=== PATIENT | female | born 1955 | race Caucasian/White ===

== ENCOUNTER 2017-07-11 14:27 | Emergency (ER) | payer OTHER ==
[2017-07-11 14:35] VITALS: RESP 18; TEMP 97.4
[2017-07-11] MEDS ORDERED: KETOROLAC 30 MG/ML 1 ML VIAL IVP STA (14:46)
[2017-07-11] MEDS ORDERED: SODIUM CHLORIDE 0.9% 1,000 ML IV STA (14:46)
--- NOTE | 2017-07-11 14:51 | ED ---
General Adult HPI - General Chief complaint: Chest Pain Stated complaint: Chest Pain Time Seen by Provider: 07/11/17 14:37 Source: patient, RN notes reviewed, old records reviewed Mode of arrival: ambulatory Limitations: no limitations - History of Present Illness Initial comments: 61-year-old female with no significant past medical history presents with right- sided chest pain. Patient reports pain started while at rest. Sharp stabbing in nature. Did travel to her back. There was one episode of nausea and vomiting. Patient states she has had 2 normal bowel movements since the episode. Denies shortness of breath. Patient is able to point with one finger to the location of the pain. Denies any injury. Patient is concerned this could be her gallbladder. Past surgical history of hysterectomy, and appendectomy. No cardiac history. Patient denies fever but states she had some chills. - Related Data Previous Rx's Medication Instructions Recorded HYDROcodone/APAP 5-325MG [[place] 1 tab PO Q6HR PRN #12 tab 07/11/17 5-325] Ibuprofen [Motrin] 600 mg PO Q8HR PRN #24 tab 07/11/17 Allergies Allergy/AdvReac Type Severity Reaction Status Date / Time No Known Allergies Allergy Verified 07/11/17 16:06 Review of Systems ROS Statement: Those systems with pertinent positive or pertinent negative responses have been documented in the HPI. ROS Other: All systems not noted in ROS Statement are negative. Past Medical History Past Medical History: No Reported History Additional Past Medical History / Comment(s): colon polyp History of Any Multi-Drug Resistant Organisms: None Reported Past Surgical History: Appendectomy, Hysterectomy, Tubal Ligation Additional Past Surgical History / Comment(s): colonoscopy 2 weeks ago Past Psychological History: Anxiety Smoking Status: Never smoker Past Alcohol Use History: Occasional Past Drug Use History: None Reported General Exam Limitations: no limitations General appearance: alert, in no apparent distress Head exam: Present: atraumatic, normocephalic Eye exam: Present: normal appearance, PERRL ENT exam: Present: normal exam Neck exam: Present: normal inspection. Absent: tenderness, meningismus Respiratory exam: Present: normal lung sounds bilaterally. Absent: respiratory distress Cardiovascular Exam: Present: regular rate, normal rhythm, other (Point tenderness over the right costal sternal margin.) GI/Abdominal exam: Present: soft. Absent: distended, tenderness, guarding, rebound Extremities exam: Present: normal inspection, full ROM, normal capillary refill. Absent: pedal edema Back exam: Present: normal inspection, full ROM Neurological exam: Present: alert, oriented X3, CN II-XII intact Psychiatric exam: Present: normal affect, normal mood Skin exam: Present: warm, dry, intact. Absent: cyanosis, diaphoretic Course Vital Signs 07/11/17 07/11/17 14:31 15:40 Temperature 97.4 F L Pulse Rate 77 68 Respiratory 18 18 Rate Blood Pressure 138/78 168/79 O2 Sat by Pulse 99 99 Oximetry EKG Findings - EKG Comments: EKG Findings:: EKG shows normal sinus rhythm, ventricular rate 66, NE interval 1 :30, castration 66, QTC 398, no ST segment elevation or depression, no T-wave abnormality Medical Decision Making - Medical Decision Making 61-year-old female with reproducible right anterior chest pain. Patient was initially concerned this may be her gallbladder. Ultrasound was obtained, negative for cholelithiasis or signs of cholecystitis. Laboratory studies including CBC, CMP, cardiac enzymes, d-dimer and liver function tests are unremarkable. Patient is given Toradol. On reevaluation she is feeling much better. EKG was obtained, nonischemic at the time the patient had significant pain. Further history does reveal patient did some dancing this weekend, believes she may have overdone it. Pain is reproducible, point tenderness over the costosternal border on the right. Diagnosis: Muscular skeletal chest pain. - Lab Data Result diagrams: 07/11/17 14:48 07/11/17 14:48 Lab Results 07/11/17 07/11/17 07/11/17 Range/Units 14:48 14:48 14:48 WBC 7.4 (3.8-10.6) k/uL RBC 4.16 (3.80-5.40) m/uL Hgb 12.4 (11.4-16.0) gm/dL Hct 38.2 (34.0-46.0) % MCV 91.7 (80.0-100.0) fL MCH 29.9 (25.0-35.0) pg MCHC 32.6 (31.0-37.0) g/dL RDW 12.9 (11.5-15.5) % Plt Count 187 (150-450) k/uL Neutrophils % 88 % Lymphocytes % 9 % Monocytes % 3 % Eosinophils % 0 % Basophils % 0 % Neutrophils # 6.5 (1.3-7.7) k/uL Lymphocytes # 0.6 L (1.0-4.8) k/uL Monocytes # 0.2 (0-1.0) k/uL Eosinophils # 0.0 (0-0.7) k/uL Basophils # 0.0 (0-0.2) k/uL PT (9.0-12.0) sec INR (<1.2) APTT (22.0-30.0) sec D-Dimer (<0.60) mg/L FEU Sodium 138 (137-145) mmol/L Potassium 4.5 (3.5-5.1) mmol/L Chloride 107 (98-107) mmol/L Carbon Dioxide 21 L (22-30) mmol/L Anion Gap 10 mmol/L BUN 17 (7-17) mg/dL Creatinine 0.74 (0.52-1.04) mg/dL Est GFR (MDRD) Af Amer >60 (>60 ml/min/1.73 sqM) Est GFR (MDRD) Non-Af >60 (>60 ml/min/1.73 sqM) Glucose 113 H (74-99) mg/dL Calcium 9.4 (8.4-10.2) mg/dL Magnesium 1.8 (1.6-2.3) mg/dL Total Bilirubin 0.4 (0.2-1.3) mg/dL AST 24 (14-36) U/L ALT 33 (9-52) U/L Alkaline Phosphatase 87 (38-126) U/L Total Creatine Kinase 68 (30-135) U/L CK-MB (CK-2) 0.8 (0.0-2.4) ng/mL CK-MB (CK-2) Rel Index 1.2 Troponin I <0.012 (0.000-0.034) ng/mL Total Protein 7.3 (6.3-8.2) g/dL Albumin 4.3 (3.5-5.0) g/dL Amylase <30 L (30-110) U/L Lipase 49 (23-300) U/L Urine Color Urine Appearance (Clear) Urine pH (5.0-8.0) Ur Specific [place] (1.001-1.035) Urine Protein (Negative) Urine Glucose (UA) (Negative) Urine Ketones (Negative) Urine Blood (Negative) Urine Nitrite (Negative) Urine Bilirubin (Negative) Urine Urobilinogen (<2.0) mg/dL Ur Leukocyte Esterase (Negative) 07/11/17 07/11/17 Range/Units 14:48 15:53 WBC (3.8-10.6) k/uL RBC (3.80-5.40) m/uL Hgb (11.4-16.0) gm/dL Hct (34.0-46.0) % MCV (80.0-100.0) fL MCH (25.0-35.0) pg MCHC (31.0-37.0) g/dL RDW (11.5-15.5) % Plt Count (150-450) k/uL Neutrophils % % Lymphocytes % % Monocytes % % Eosinophils % % Basophils % % Neutrophils # (1.3-7.7) k/uL Lymphocytes # (1.0-4.8) k/uL Monocytes # (0-1.0) k/uL Eosinophils # (0-0.7) k/uL Basophils # (0-0.2) k/uL PT 9.9 (9.0-12.0) sec INR 1.0 (<1.2) APTT 20.7 L (22.0-30.0) sec D-Dimer 0.24 (<0.60) mg/L FEU Sodium (137-145) mmol/L Potassium (3.5-5.1) mmol/L Chloride (98-107) mmol/L Carbon Dioxide (22-30) mmol/L Anion Gap mmol/L BUN (7-17) mg/dL Creatinine (0.52-1.04) mg/dL Est GFR (MDRD) Af Amer (>60 ml/min/1.73 sqM) Est GFR (MDRD) Non-Af (>60 ml/min/1.73 sqM) Glucose (74-99) mg/dL Calcium (8.4-10.2) mg/dL Magnesium (1.6-2.3) mg/dL Total Bilirubin (0.2-1.3) mg/dL AST (14-36) U/L ALT (9-52) U/L Alkaline Phosphatase (38-126) U/L Total Creatine Kinase (30-135) U/L CK-MB (CK-2) (0.0-2.4) ng/mL CK-MB (CK-2) Rel Index Troponin I (0.000-0.034) ng/mL Total Protein (6.3-8.2) g/dL Albumin (3.5-5.0) g/dL Amylase (30-110) U/L Lipase (23-300) U/L Urine Color Yellow Urine Appearance Clear (Clear) Urine pH 5.5 (5.0-8.0) Ur Specific [place] 1.025 (1.001-1.035) Urine Protein Trace H (Negative) Urine Glucose (UA) Negative (Negative) Urine Ketones Trace H (Negative) Urine Blood Negative (Negative) Urine Nitrite Negative (Negative) Urine Bilirubin Negative (Negative) Urine Urobilinogen <2.0 (<2.0) mg/dL Ur Leukocyte Esterase Negative (Negative) Disposition Clinical Impression: Chest wall syndrome, Chest wall pain Disposition: HOME SELF-CARE Condition: Good Instructions: Costochondritis (ED) Prescriptions: HYDROcodone/APAP 5-325MG [[place] 5-325] 1 tab PO Q6HR PRN #12 tab PRN Reason: Pain Ibuprofen [Motrin] 600 mg PO Q8HR PRN #24 tab PRN Reason: Pain Referrals: Tree Perez DO [Primary Care Provider] - 1-2 days Time of Disposition: 16:24
--- NOTE | 2017-07-11 15:14 | XR ---
EXAMINATION TYPE: XR chest 2V DATE OF EXAM: 07/11/2017 COMPARISON: Chest x-ray and CTA chest July 01, 2016 HISTORY: Right-sided chest pain TECHNIQUE: Frontal and lateral views of the chest are obtained. FINDINGS: There is no focal air space opacity, pleural effusion, or pneumothorax seen. The cardiac silhouette size is within normal limits. The osseous structures are intact. Large rim calcified les ion in the upper abdomen is redemonstrated presumed benign near the level of spleen on CT. IMPRESSION: No acute cardiopulmonary process.
[2017-07-11 15:25] LABS: Basophils % (A) 0 %; CH 29.9; CHCM 32.7; Eosinophils % (A) 0 %; HCT 38.2 % (34.0-46.0); HDW 2.79; HGB 12.4 gm/dL (11.4-16.0); Luc # (Auto) 0.08; Luc % (Auto) 1; Lymphocytes # (A) 0.6 k/uL (1.0-4.8); Lymphocytes % (A) 9 %; MCH 29.9 pg (25.0-35.0); MCHC 32.6 g/dL (31.0-37.0); MCV 91.7 fL (80.0-100.0); Monocytes # (A) 0.2 k/uL (0-1.0); Monocytes % (A) 3 %; Neutrophils # (A) 6.5 k/uL (1.3-7.7); Neutrophils % (A) 88 %; RBC 4.16 m/uL (3.80-5.40); RDW 12.9 % (11.5-15.5); WBC 7.4 k/uL (3.8-10.6); WBC (Perox) 7.25
--- NOTE | 2017-07-11 15:32 | US ---
EXAMINATION TYPE: US gallbladder DATE OF EXAM: 07/11/2017 COMPARISON: NONE CLINICAL HISTORY: Pain. US 06/2016 EXAM MEASUREMENTS: Liver Length: 15.7 cm Gallbladder Wall: 0.2 cm CBD: 0.5 cm Right Kidney: 9.5 x 3.8 x 3.5 cm Pancreas: Tail obscured by overlying bowel gas, visualized portions wnl Liver: wnl Gallbladder: wnl Evidence for sonographic Grigsby's sign: No CBD: wnl Right Kidney: No hydronephrosis or masses seen IMPRESSION: No sonographic evidence of cholecystitis or cholelithiasis.
[2017-07-11 15:33] LABS: ALT 33 U/L (9-52); AST 24 U/L (14-36); Alkaline Phosphatase 87 U/L (38-126); Amylase <30 U/L (30-110); Anion Gap 10 mmol/L; Blood Urea Nitrogen 17 mg/dL (7-17); Calcium 9.4 mg/dL (8.4-10.2); Carbon Dioxide 21 mmol/L (22-30); Chloride 107 mmol/L (98-107); Glucose 113 mg/dL (74-99); Magnesium 1.8 mg/dL (1.6-2.3); Non-African American GFR(MDRD) >60 (>60 ml/min/1.73 sqM); Potassium 4.5 mmol/L (3.5-5.1); Sodium 138 mmol/L (137-145); Total Bilirubin 0.4 mg/dL (0.2-1.3); Total Protein 7.3 g/dL (6.3-8.2)
[2017-07-11 15:40] LABS: Prothrombin Time 9.9 sec (9.0-12.0)
[2017-07-11 15:42] VITALS: PULSE 68
[2017-07-11 15:46] LABS: Partial Thromboplastin Time 20.7 sec (22.0-30.0)
[2017-07-11 15:47] LABS: Creatine Kinase 68 U/L (30-135)
[2017-07-11 16:00] LABS: Creatine Kinase MB 0.8 ng/mL (0.0-2.4); Troponin I <0.012 ng/mL (0.000-0.034)
[2017-07-11 16:01] LABS: Appearance,Urine Clear (Clear); Bilirubin,Urine Negative (Negative); Glucose,Urine (UA) Negative (Negative); Ketones,Urine Trace (Negative); Leukocyte Esterase,Urine Negative (Negative); Nitrite,Urine Negative (Negative); PH, Urine 5.5 (5.0-8.0); Protein,Urine Trace (Negative); Specific Gravity,Urine 1.025 (1.001-1.035); UA Billing (MACRO vs. MICRO) CHEM; Urobilinogen,Urine <2.0 mg/dL (<2.0)
[2017-07-11 16:30] VITALS: BP 150/71
== END 2017-07-11 16:35 | disposition home or self-care (01) ==
LOC: EC 14:27
DX: R07.1 Chest pain on breathing (principal); R07.89 Other chest pain
CPT/HCPCS: 99285; 96374; 96361; 36415; 93005; 85379; 80053; 82150; 82550; 82553; 83690; 83735; 84484; 85025; 85610; 85730; 81003; 71020; 76705; J1885

== ENCOUNTER 2019-03-19 13:34 | Emergency (ER) | payer BC, OTHER ==
[2019-03-19 14:26] VITALS: RESP 18
[2019-03-19 16:10] LABS: Basophils % (A) 0 %; Eosinophils # (A) 0.1 k/uL (0-0.7); Eosinophils % (A) 2 %; HCT 37.9 % (34.0-46.0); HGB 12.4 gm/dL (11.4-16.0); Lymphocytes # (A) 1.9 k/uL (1.0-4.8); Lymphocytes % (A) 32 %; MCH 28.8 pg (25.0-35.0); MCHC 32.6 g/dL (31.0-37.0); MCV 88.4 fL (80.0-100.0); Mean Platelet Volume 7.5; Monocytes # (A) 0.3 k/uL (0-1.0); Monocytes % (A) 6 %; Neutrophils # (A) 3.4 k/uL (1.3-7.7); Neutrophils % (A) 58 %; Platelet Count 172 k/uL (150-450); RBC 4.29 m/uL (3.80-5.40); WBC 5.9 k/uL (3.8-10.6)
[2019-03-19 16:24] LABS: ALT 17 U/L (9-52); AST 26 U/L (14-36); African American GFR (CKD) >90 (>60 ml/min/1.73 sqM); Albumin 4.6 g/dL (3.5-5.0); Alkaline Phosphatase 77 U/L (38-126); Anion Gap 10 mmol/L; Blood Urea Nitrogen 14 mg/dL (7-17); Calcium 9.7 mg/dL (8.4-10.2); Carbon Dioxide 22 mmol/L (22-30); Chloride 106 mmol/L (98-107); Glucose 96 mg/dL (74-99); Sodium 138 mmol/L (137-145); Total Bilirubin 0.5 mg/dL (0.2-1.3); Total Protein 7.7 g/dL (6.3-8.2)
--- NOTE | 2019-03-19 16:50 | ED ---
General Adult HPI - General Chief complaint: Vaginal Bleeding Stated complaint: female Time Seen by Provider: 03/19/19 14:55 Source: patient, RN notes reviewed Mode of arrival: ambulatory Limitations: no limitations - History of Present Illness Initial comments: 63-year-old female with a past medical history of tubal ligation, hysterectomy presents to the emergency department for a chief complaint of vaginal bleeding. Patient states on Tuesday she had rigorous intercourse and it was bleeding. Patient states she was passing clots at that time. States that she had minimal spotting since then so presented to urgent care today. States that when the speculum exam was performed she started bleeding heavily for several minutes. Patient then presented to the emergency department on their recommendation. Patient states she feels fine besides this.Patient has no other complaints at this time including shortness of breath, chest pain, abdominal pain, nausea or vomiting, headache, or visual changes. - Related Data Home Medications Medication Instructions Recorded Confirmed Ibuprofen [Advil] 200 - 400 mg PO Q6HR PRN 03/19/19 03/19/19 Allergies Allergy/AdvReac Type Severity Reaction Status Date / Time No Known Allergies Allergy Verified 03/19/19 15:19 Review of Systems ROS Statement: Those systems with pertinent positive or pertinent negative responses have been documented in the HPI. ROS Other: All systems not noted in ROS Statement are negative. Past Medical History Past Medical History: No Reported History Additional Past Medical History / Comment(s): colon polyp History of Any Multi-Drug Resistant Organisms: None Reported Past Surgical History: Appendectomy, Hysterectomy, Tonsillectomy, Tubal Ligation Additional Past Surgical History / Comment(s): colonoscopy 2 weeks ago Past Psychological History: Anxiety Smoking Status: Never smoker Past Alcohol Use History: Occasional Past Drug Use History: None Reported General Exam Limitations: no limitations General appearance: alert, in no apparent distress Head exam: Present: atraumatic, normocephalic, normal inspection Eye exam: Present: normal appearance, PERRL, EOMI. Absent: scleral icterus, conjunctival injection, periorbital swelling ENT exam: Present: normal exam, mucous membranes moist Neck exam: Present: normal inspection, full ROM. Absent: tenderness, meningismus, lymphadenopathy Respiratory exam: Present: normal lung sounds bilaterally. Absent: respiratory distress, wheezes, rales, rhonchi, stridor Cardiovascular Exam: Present: regular rate, normal rhythm, normal heart sounds. Absent: systolic murmur, diastolic murmur, rubs, gallop, clicks GI/Abdominal exam: Present: soft, normal bowel sounds. Absent: distended, tenderness, guarding, rebound, rigid External exam: Present: normal external exam. Absent: erythema, swelling, lesions, lacerations, ecchymosis Speculum exam: Present: vaginal bleeding (Very minimal bleeding noted, no blood clots.). Absent: erythema, vaginal discharge, cervical discharge, foreign body By manual exam: Present: normal by manual exam. Absent: cervical motion tenderness, adnexal tenderness, adnexal mass, uterine enlargement, uterine tenderness Course Vital Signs 03/19/19 14:21 Temperature 98.2 F Pulse Rate 90 Respiratory 18 Rate Blood Pressure 122/87 O2 Sat by Pulse 97 Oximetry Medical Decision Making - Medical Decision Making 63-year-old female presents to the emergency department for a chief complaint of vaginal bleeding. States that she had intercourse on Tuesday and had vaginal bleeding at that time. States she had very minimal spotting since then. Went to urgent care today and speculum exam caused bleeding again so she presented to the emergency department. On exam patient has minimal bleeding present. There is possibly a small laceration noted to the vaginal vault. CBC and CMP were unremarkable. Urine was performed Previously at urgent care which results were reviewed and were negative. Patient could not urinate here. Patient reevaluated, no vaginal bleeding whatsoever at this time. Patient eagerly requesting discharge. States she has already called Dr. White is going to be following up there shortly. Chest however to return if patient has any worsening bleeding. Discussed vaginal rest as well. - Lab Data Result diagrams: 03/19/19 15:56 03/19/19 15:56 Lab Results 03/19/19 03/19/19 Range/Units 15:56 15:56 WBC 5.9 (3.8-10.6) k/uL RBC 4.29 (3.80-5.40) m/uL Hgb 12.4 (11.4-16.0) gm/dL Hct 37.9 (34.0-46.0) % MCV 88.4 (80.0-100.0) fL MCH 28.8 (25.0-35.0) pg MCHC 32.6 (31.0-37.0) g/dL RDW 14.0 (11.5-15.5) % Plt Count 172 (150-450) k/uL Neutrophils % 58 % Lymphocytes % 32 % Monocytes % 6 % Eosinophils % 2 % Basophils % 0 % Neutrophils # 3.4 (1.3-7.7) k/uL Lymphocytes # 1.9 (1.0-4.8) k/uL Monocytes # 0.3 (0-1.0) k/uL Eosinophils # 0.1 (0-0.7) k/uL Basophils # 0.0 (0-0.2) k/uL Sodium 138 (137-145) mmol/L Potassium 4.0 (3.5-5.1) mmol/L Chloride 106 (98-107) mmol/L Carbon Dioxide 22 (22-30) mmol/L Anion Gap 10 mmol/L BUN 14 (7-17) mg/dL Creatinine 0.70 (0.52-1.04) mg/dL Est GFR (CKD-EPI)AfAm >90 (>60 ml/min/1.73 sqM) Est GFR (CKD-EPI)NonAf >90 (>60 ml/min/1.73 sqM) Glucose 96 (74-99) mg/dL Calcium 9.7 (8.4-10.2) mg/dL Total Bilirubin 0.5 (0.2-1.3) mg/dL AST 26 (14-36) U/L ALT 17 (9-52) U/L Alkaline Phosphatase 77 (38-126) U/L Total Protein 7.7 (6.3-8.2) g/dL Albumin 4.6 (3.5-5.0) g/dL Disposition Clinical Impression: Vaginal bleeding Disposition: HOME SELF-CARE Condition: Good Instructions (If sedation given, give patient instructions): Dysfunctional Uterine Bleeding (ED) Additional Instructions: Please follow up with Dr. Gutiérrez in one to 2 days. Please return here to the emergency department if bleeding recurs. Is patient prescribed a controlled substance at d/c from ED?: No Referrals: Tree Perez DO [Primary Care Provider] - 1-2 days Ana Luisa Lubin DO [Family Provider] - 1-2 days Time of Disposition: 16:49
[2019-03-19 17:00] VITALS: BP 120/77; PULSE 85; TEMP 98.6
== END 2019-03-19 17:00 | disposition home or self-care (01) ==
LOC: EC 13:34
DX: N93.9 Abnormal uterine and vaginal bleeding, unspecified (principal); Z86.010 Personal history of colon polyps; Z90.49 Acquired absence of other specified parts of digestive tract; Z98.51 Tubal ligation status; Z90.710 Acquired absence of both cervix and uterus
CPT/HCPCS: 36415; 80053; 85025; 99284

== ENCOUNTER → 2019-05-30 | Outpatient (CLI) | payer BC ==
--- NOTE | 2019-05-31 13:38 | MM ---
Reason for exam: screening (asymptomatic). Last mammogram was performed 8 years and 5 months ago. History: Patient is postmenopausal. Benign right mammotome panel of the right breast, September 20, 2007. Benign right mammotome panel of the right breast, September 20, 2007. Took estrogen for 5 years beginning at age 46. Physical Findings: A clinical breast exam by your physician is recommended on an annual basis and results should be correlated with mammographic findings. MG 3D Screening Mammo W/Cad Bilateral CC and MLO view(s) were taken. Prior study comparison: January 05, 2011, CAD bilateral diagnostic mammogram. August 31, 2007, workup right diagnostic mammogram. The breast tissue is heterogeneously dense. This may lower the sensitivity of mammography. Stable benign calcifications. There is no discrete abnormality. No significant changes when compared with prior studies. ASSESSMENT: Benign, BI-RAD 2 RECOMMENDATION: Routine screening mammogram of both breasts in 1 year.
== END | disposition home or self-care (01) ==
LOC: RADMAMWWP 07:55
PROVIDERS: ATTEND Family Medicine
DX: Z12.31 Encounter for screening mammogram for malignant neoplasm of breast (principal)
CPT/HCPCS: 77063; 77067

== ENCOUNTER → 2021-11-26 | Outpatient (CLI) | payer MEDICARE ==
--- NOTE | 2021-11-26 23:22 | XR ---
EXAMINATION TYPE: XR knee complete LT DATE OF EXAM: 11/26/2021 COMPARISON: None available INDICATION: 66-year-old female, pain TECHNIQUE: 3 views of the left knee FINDINGS: Slightly sharp medial tibial spine with mild narrowing of the tibiofemoral joint space. Small medial tibial and superior patellar osteophytosis. No other significant bony degenerative changes of the left knee joint. No definite acute fracture rochelle e identified. No sizable knee joint effusion. IMPRESSION: [id number] degenerative changes of the left knee joint as described above.
== END | disposition home or self-care (01) ==
LOC: RADXRMAIN 14:54
PROVIDERS: ATTEND Family Medicine
DX: M17.12 Unilateral primary osteoarthritis, left knee (principal); M25.762 Osteophyte, left knee

== ENCOUNTER → 2021-12-29 | Outpatient (CLI) | payer MEDICARE ==
--- NOTE | 2021-12-30 08:17 | MR ---
EXAMINATION TYPE: MR knee LT wo con DATE OF EXAM: 12/29/2021 COMPARISON: Left knee x-ray November 26, 2021 HISTORY: Left knee pain, painful kneecap, and swelling. History of slamming knee injury due to fall. TECHNIQUE: Multiplanar, multisequence imaging of the left knee is performed without IV contrast. FINDINGS: MEDIAL MENISCUS: Medial extrusion medial meniscus on coronal images. Oblique signal posterior horn ex tending to inferior articular surface. LATERAL MENISCUS: Anterior and posterior horns are intact without tear. CRUCIATE LIGAMENTS: The anterior and posterior cruciate ligaments are intact and unremarkable. COLLATERAL LIGAMENTS: The medial collateral ligament and lateral collateral ligament complex are inta ct and unremarkable. EXTENSOR MECHANISM: Visualized quadriceps and patellar tendons are intact. EFFUSION: No significant suprapatellar joint effusion. POPLITEAL CYST: No popliteal/nice cyst. TRICOMPARTMENT SPACES: Mild tricompartment joint space loss and spurring. CARTILAGE: Tricompartment articular cartilage is preserved. BONE MARROW SIGNAL: No focal abnormal marrow signal is appreciated. OTHER: No additional significant abnormality is appreciated. IMPRESSION: 1. Oblique full-thickness tear posterior horn medial meniscus. 2. Mild tricompartment degenerative changes as detailed above.
== END | disposition home or self-care (01) ==
LOC: RADMRIMAIN 16:46
PROVIDERS: ATTEND Orthopaedic Surgery
DX: S83.242A Other tear of medial meniscus, current injury, left knee, initial encounter (principal); M17.12 Unilateral primary osteoarthritis, left knee; W19.XXXA Unspecified fall, initial encounter

== ENCOUNTER 2022-04-28 12:47 | Inpatient (IN) | payer MEDICARE ==
--- NOTE | 2022-04-28 17:13 | ED ---
General Adult HPI - General Source: patient, RN notes reviewed Mode of arrival: ambulatory Limitations: no limitations <Kimber Moise - Last Filed: 04/28/22 20:06> <Rell Araujo - Last Filed: 04/28/22 20:24> - General Chief complaint: Recheck/Abnormal Lab/Rx Stated complaint: infection Time Seen by Provider: 04/28/22 16:31 - History of Present Illness Initial comments: Patient is a 66-year-old female presents the emergency room with complaints of ongoing fatigue and generalized malaise along with chills. She reports that approximately 9 days ago she developed significant chills and some mild tremors with extreme fatigue. She reports that the chills and tremors resolved however she continues to have significant fatigue in which she was unable to get out of bed for 3 days. She recently had been following with rheumatology regarding mild rheumatoid arthritis diagnosis and was started on methotrexate in January of this year. She was due for a dose of methotrexate this past Tuesday and was advised by rheumatology not to take the doses. She had a workup completed by rheumatology who advised her that she had a questionable urinary tract infection but they were awaiting culture and did not start her on treatment for any infection. She has not seen her primary care provider regarding her symptoms. She states that she has tested herself her covert multiple times since the onset of the symptoms and that all of her tests have been negative. She also complains of a cough that is persistent. She has decreased oral intake but denies any nausea vomiting or diarrhea. She denies any chest pain, shortness of breath, headache or dizziness. She does report some chills but denies any known fevers. With the exception of her rheumatoid arthritis her only other significant past medical history is for anxiety. She states that she is vaccinated for COVID. She denies any known exposure to any communicable diseases. (Kimber Moise) - Related Data Home Medications Medication Instructions Recorded Confirmed Ibuprofen [Advil] 200 - 400 mg PO Q6HR PRN 03/19/19 04/28/22 Folic Acid 2 mg PO DAILY 04/28/22 04/28/22 Allergies Allergy/AdvReac Type Severity Reaction Status Date / Time No Known Allergies Allergy Verified 04/28/22 18:07 Review of Systems ROS Other: All systems not noted in ROS Statement are negative. <Kimber Moise - Last Filed: 04/28/22 20:06> ROS Other: All systems not noted in ROS Statement are negative. <GayleRell Vidal - Last Filed: 04/28/22 20:24> ROS Statement: Those systems with pertinent positive or pertinent negative responses have been documented in the HPI. Past Medical History Past Medical History: No Reported History Additional Past Medical History / Comment(s): colon polyp, RA History of Any Multi-Drug Resistant Organisms: None Reported Past Surgical History: Appendectomy, Hysterectomy, Tonsillectomy, Tubal Ligation Additional Past Surgical History / Comment(s): colonoscopy 2 weeks ago Past Psychological History: Anxiety Smoking Status: Never smoker Past Alcohol Use History: Occasional Past Drug Use History: None Reported <Kimber Moise - Last Filed: 04/28/22 20:06> General Exam Limitations: no limitations General appearance: alert, in no apparent distress Head exam: Present: atraumatic, normocephalic, normal inspection Eye exam: Present: normal appearance, PERRL, EOMI. Absent: scleral icterus, conjunctival injection, periorbital swelling ENT exam: Present: normal exam, mucous membranes moist Neck exam: Present: normal inspection. Absent: tenderness, meningismus, lymphadenopathy Respiratory exam: Present: normal lung sounds bilaterally. Absent: respiratory distress, wheezes, rales, rhonchi, stridor Cardiovascular Exam: Present: regular rate, normal rhythm, normal heart sounds. Absent: systolic murmur, diastolic murmur, rubs, gallop, clicks GI/Abdominal exam: Present: soft, normal bowel sounds. Absent: distended, tenderness, guarding, rebound, rigid Extremities exam: Present: normal inspection, full ROM, normal capillary refill. Absent: tenderness, pedal edema, joint swelling, calf tenderness Back exam: Present: normal inspection Neurological exam: Present: alert, oriented X3, CN II-XII intact Psychiatric exam: Present: normal affect, normal mood Skin exam: Present: warm, dry, intact, normal color. Absent: rash <Kimber Moise - Last Filed: 04/28/22 20:06> Course Vital Signs 04/28/22 13:21 Temperature 98.8 F Pulse Rate 119 H Respiratory 20 Rate Blood Pressure 113/66 O2 Sat by Pulse 96 Oximetry Medical Decision Making - Lab Data Result diagrams: 04/28/22 17:49 04/28/22 17:49 <Kimber Moise - Last Filed: 04/28/22 20:06> - Lab Data Result diagrams: 04/28/22 17:49 04/28/22 17:49 <Rell Araujo - Last Filed: 04/28/22 20:24> - Medical Decision Making Covid swab negative. Will check CBC, CMP along with inflammatory markers and influenza swabs. Will repeat urinalysis that she was advised by rheumatology was positive. No indication for diagnostic imaging at this time. CBC normal. Sed rate elevated at 69, CRP elevated 14.8. AST mildly elevated at 50, normal ALT along with BUN mildly elevated at 18. Unclear etiology of inflammatory versus infectious process. No obvious infectious source. TSH still pending. Case discussed with Dr. Araujo who is taking over the further evaluation and treatment of the patient which at this time is planned for observation admission to medicine with infectious disease consultation. (Kimber Moise) Patient care is signed out to me by previous shift physician nurse practitioner, lower 1 command. Briefly, patient is a 66-year-old female presents emergency department for constitutional symptoms. Patient allegedly was recently diagnosed with rheumatoid arthritis. She was supposed to be started on immune medications however has not done so yet. Laboratory evaluation was obtained. CBC is unremarkable. No leukocytosis. Metabolic panel is within acceptable limits. Of note patient is a sort of 69 and a CRP 14.8. Urinalysis negative. Patient having respiratory symptoms. Covered and influenza tests are negative. At this point there is concern of significant inflammatory processes. Bacter emia is part of the differential. Pending blood cultures. Given patient's severity of symptoms patient benefit from medical monitoring will consultation infectious disease. (Rell Araujo) - Lab Data Lab Results 04/28/22 04/28/22 04/28/22 Range/Units 13:28 17:49 17:49 WBC 8.4 (3.8-10.6) k/uL RBC 4.37 (3.80-5.40) m/uL Hgb 13.2 (11.4-16.0) gm/dL Hct 40.2 (34.0-46.0) % MCV 92.1 (80.0-100.0) fL MCH 30.1 (25.0-35.0) pg MCHC 32.7 (31.0-37.0) g/dL RDW 15.5 (11.5-15.5) % Plt Count 279 (150-450) k/uL MPV 7.2 Neutrophils % 76 % Lymphocytes % 15 % Monocytes % 6 % Eosinophils % 0 % Basophils % 1 % Neutrophils # 6.4 (1.3-7.7) k/uL Lymphocytes # 1.3 (1.0-4.8) k/uL Monocytes # 0.5 (0-1.0) k/uL Eosinophils # 0.0 (0-0.7) k/uL Basophils # 0.0 (0-0.2) k/uL ESR 69 H (0-20) mm/hr Sodium (137-145) mmol/L Potassium (3.5-5.1) mmol/L Chloride (98-107) mmol/L Carbon Dioxide (22-30) mmol/L Anion Gap mmol/L BUN (7-17) mg/dL Creatinine (0.52-1.04) mg/dL Est GFR (CKD-EPI)AfAm (>60 ml/min/1.73 sqM) Est GFR (CKD-EPI)NonAf (>60 ml/min/1.73 sqM) Glucose (74-99) mg/dL Calcium (8.4-10.2) mg/dL Total Bilirubin (0.2-1.3) mg/dL AST (14-36) U/L ALT (4-34) U/L Alkaline Phosphatase (38-126) U/L CK-MB (CK-2) (0.0-2.4) ng/mL C-Reactive Protein (<1.0) mg/dL Total Protein (6.3-8.2) g/dL Albumin (3.5-5.0) g/dL Urine Color Light Yellow Urine Appearance Clear (Clear) Urine pH 6.0 (5.0-8.0) Ur Specific Winter 1.006 (1.001-1.035) Urine Protein Negative (Negative) Urine Glucose (UA) Negative (Negative) Urine Ketones Negative (Negative) Urine Blood Negative (Negative) Urine Nitrite Negative (Negative) Urine Bilirubin Negative (Negative) Urine Urobilinogen <2.0 (<2.0) mg/dL Ur Leukocyte Esterase Negative (Negative) Coronavirus (PCR) Not Detected (Not Detectd) Influenza Type A RNA (Not Detectd) Influenza Type B (PCR) (Not Detectd) 04/28/22 04/28/22 04/28/22 Range/Units 17:49 17:49 18:21 WBC (3.8-10.6) k/uL RBC (3.80-5.40) m/uL Hgb (11.4-16.0) gm/dL Hct (34.0-46.0) % MCV (80.0-100.0) fL MCH (25.0-35.0) pg MCHC (31.0-37.0) g/dL RDW (11.5-15.5) % Plt Count (150-450) k/uL MPV Neutrophils % % Lymphocytes % % Monocytes % % Eosinophils % % Basophils % % Neutrophils # (1.3-7.7) k/uL Lymphocytes # (1.0-4.8) k/uL Monocytes # (0-1.0) k/uL Eosinophils # (0-0.7) k/uL Basophils # (0-0.2) k/uL ESR (0-20) mm/hr Sodium 132 L (137-145) mmol/L Potassium 4.7 (3.5-5.1) mmol/L Chloride 96 L (98-107) mmol/L Carbon Dioxide 24 (22-30) mmol/L Anion Gap 12 mmol/L BUN 18 H (7-17) mg/dL Creatinine 0.83 (0.52-1.04) mg/dL Est GFR (CKD-EPI)AfAm 85 (>60 ml/min/1.73 sqM) Est GFR (CKD-EPI)NonAf 74 (>60 ml/min/1.73 sqM) Glucose 99 (74-99) mg/dL Calcium 9.6 (8.4-10.2) mg/dL Total Bilirubin 1.1 (0.2-1.3) mg/dL AST 50 H (14-36) U/L ALT 29 (4-34) U/L Alkaline Phosphatase 75 (38-126) U/L CK-MB (CK-2) 1.2 (0.0-2.4) ng/mL C-Reactive Protein 14.8 H (<1.0) mg/dL Total Protein 7.2 (6.3-8.2) g/dL Albumin 4.1 (3.5-5.0) g/dL Urine Color Urine Appearance (Clear) Urine pH (5.0-8.0) Ur Specific Winter (1.001-1.035) Urine Protein (Negative) Urine Glucose (UA) (Negative) Urine Ketones (Negative) Urine Blood (Negative) Urine Nitrite (Negative) Urine Bilirubin (Negative) Urine Urobilinogen (<2.0) mg/dL Ur Leukocyte Esterase (Negative) Coronavirus (PCR) (Not Detectd) Influenza Type A RNA Not Detected (Not Detectd) Influenza Type B (PCR) Not Detected (Not Detectd) Disposition <Kimber Moise - Last Filed: 04/28/22 20:06> Decision Time: 20:24 <Rell Araujo - Last Filed: 04/28/22 20:24> Clinical Impression: SIRS without infection or organ dysfunction Disposition: ADMITTED IP TO THIS HOSP Condition: Fair Referrals: Tree Perez DO [Primary Care Provider] - 1-2 days
[2022-04-28 18:01] LABS: Basophils % (A) 1 %; Eosinophils % (A) 0 %; HCT 40.2 % (34.0-46.0); HGB 13.2 gm/dL (11.4-16.0); Lymphocytes # (A) 1.3 k/uL (1.0-4.8); Lymphocytes % (A) 15 %; MCH 30.1 pg (25.0-35.0); MCHC 32.7 g/dL (31.0-37.0); MCV 92.1 fL (80.0-100.0); Mean Platelet Volume 7.2; Monocytes # (A) 0.5 k/uL (0-1.0); Monocytes % (A) 6 %; Neutrophils # (A) 6.4 k/uL (1.3-7.7); Neutrophils % (A) 76 %; Platelet Count 279 k/uL (150-450); RBC 4.37 m/uL (3.80-5.40); RDW 15.5 % (11.5-15.5); WBC 8.4 k/uL (3.8-10.6)
[2022-04-28 18:08] LABS: Appearance,Urine Clear (Clear); Bilirubin,Urine Negative (Negative); Blood,Urine Negative (Negative); Color,Urine Light Yellow; Glucose,Urine (UA) Negative (Negative); Ketones,Urine Negative (Negative); Leukocyte Esterase,Urine Negative (Negative); Nitrite,Urine Negative (Negative); Protein,Urine Negative (Negative); Specific Gravity,Urine 1.006 (1.001-1.035); Urobilinogen,Urine <2.0 mg/dL (<2.0)
[2022-04-28 18:16] LABS: Albumin 4.1 g/dL (3.5-5.0); Calcium 9.6 mg/dL (8.4-10.2); Total Bilirubin 1.1 mg/dL (0.2-1.3); Total Protein 7.2 g/dL (6.3-8.2)
[2022-04-28 18:18] LABS: Potassium 4.7 mmol/L (3.5-5.1)
[2022-04-28 18:46] LABS: Erythrocyte Sedimentation Rate 69 mm/hr (0-20)
[2022-04-28 18:50] LABS: C Reactive Protein 14.8 mg/dL (<1.0)
[2022-04-28] MEDS ORDERED: MORPHINE SULFATE 4 MG/ML SYRINGE IV PRN (20:19)
[2022-04-28] MEDS ORDERED: ONDANSETRON 4 MG/2 ML VIAL IVP PRN (20:19)
[2022-04-28] MEDS ORDERED: NALOXONE 0.4 MG/ML 1 ML VIAL IV PRN (20:19)
[2022-04-28] MEDS ORDERED: SODIUM CHLORIDE 0.9% 1,000 ML IV SCH (20:30)
--- NOTE | 2022-04-28 22:54 | XR ---
EXAMINATION TYPE: XR chest 2V DATE OF EXAM: 04/28/2022 COMPARISON: 07/11/2017 HISTORY: Hypoxemia TECHNIQUE: FINDINGS: There is pulmonary interstitial edema. Heart size is normal. Costophrenic angles are clear. There are chest leads. IMPRESSION: Diffuse pulmonary interstitial edema appears new compared to the old exam and could be ac juan pneumonia or acute heart failure. Follow-up is recommended.
[2022-04-28] MEDS ORDERED: ALBUTEROL NEBULIZED 2.5 MG/3 ML INHALATION PRN (23:19)
[2022-04-28] MEDS ORDERED: PNEUMONIA PROTOCOL UTILIZED 1 EACH MISC PO PRN (23:20)
[2022-04-29] MEDS ORDERED: PIPERACILLIN-TAZOBACTAM 3.375 GM in SODIUM CHLORIDE 0.9% 100 ML IVPB SCH ×2
[2022-04-29] MEDS: SODIUM CHLORIDE 0.9% 1,000 ML IV SCH ×2 (01:47→23:41)
[2022-04-29] MEDS: ACETAMINOPHEN TAB 325 MG TAB PO PRN ×2 (01:47→23:41)
[2022-04-29] MEDS: ALBUTEROL NEBULIZED 2.5 MG/3 ML INHALATION SCH ×4 (08:06→19:52)
[2022-04-29 09:20] LABS: African American GFR (CKD) 77.2 (60.0-200.0); Anion Gap 12.6 mmol/L (10.00-18.00); BUN/Creat Ratio 19.89 Ratio (12.00-20.00); Blood Urea Nitrogen 17.9 mg/dL (9.0-27.0); Calcium 9.4 mg/dL (8.7-10.3); Carbon Dioxide 23.4 mmol/L (20.0-27.5); Non-African American GFR(CKD) 66.6 (60.0-200.0)
--- NOTE | 2022-04-29 10:15 | P.HPIM ---
History of Present Illness This is a pleasant 66 years old female with past medical history of rheumatoid arthritis on methotrexate at home and she follows up with Dr. iraheta tuberculosis specialist Patient states for the last 2 weeks she is been feeling tired, short of breath with sweating, over the last 3-4 days is started getting worse with more tiresome, shakiness. She is complaining of from cough with no phlegm and dyspnea but no chest pain or abdominal pain area she feels some tightness in her throat. No diarrhea, no dysuria or urinary complaints. She has mild headache and dizziness which is nonspecific, no weakness or numbness. Smoking, illicit drugs. She drinks alcohol occasionally Vitals showing fever of 99.7. Tachycardia of 119 on admission, blood pressure 113/66, tachypneic and 20 on admission and saturation 96% on room air on admission. Later on oxygen saturation dropped to 80% on room air CBC is unremarkable, ESR is elevated 69 Sodium 132, creatinine 0.8. BUN is 18 which is elevated Liver enzymes not elevated, TSH normal 4.0. CRP elevated 14.8. Urine analysis is negative. The influenza and covid viruses are negative, undetected Chest x-ray, diffuse pulmonary interstitial edema appears new compared to old exam and could be acute pneumonia or acute failure. Follow-up is recommended Patient is a started on Zithromax and ceftriaxone in the emergency room as well as normal saline 75 mL/h infectious disease team was consulted Review of Systems Review of systems CONSTITUTIONAL: No fever, no malaise, no fatigue. HEENT: No recent visual problems or hearing problems. Denied any sore throat. CARDIOVASCULAR: No orthopnea, PND, no palpitations, no syncope. PULMONARY: No chest wall tenderness, no hemoptysis. GASTROINTESTINAL: No diarrhea, no nausea, no vomiting, no abdominal pain. Normoactive bowel sounds. NEUROLOGICAL: No headaches, no weakness, no numbness. HEMATOLOGICAL: Denies any bleeding or petechiae. GENITOURINARY: Denies any burning micturition, frequency, or urgency. MUSCULOSKELETAL/RHEUMATOLOGICAL: Denies any joint pain, swelling, or any muscle pain. ENDOCRINE: Denies any polyuria or polydipsia. Past Medical History Past Medical History: No Reported History Additional Past Medical History / Comment(s): colon polyp, RA History of Any Multi-Drug Resistant Organisms: None Reported Past Surgical History: Appendectomy, Hysterectomy, Tonsillectomy, Tubal Ligation Additional Past Surgical History / Comment(s): colonoscopy 2 weeks ago Past Anesthesia/Blood Transfusion Reactions: No Reported Reaction Past Psychological History: No Psychological Hx Reported Smoking Status: Never smoker Past Alcohol Use History: None Reported Past Drug Use History: None Reported Medications and Allergies Home Medications Medication Instructions Recorded Confirmed Type Ibuprofen [Advil] 200 - 400 mg PO Q6HR PRN 03/19/19 04/28/22 History Folic Acid 2 mg PO DAILY 04/28/22 04/28/22 History Allergies Allergy/AdvReac Type Severity Reaction Status Date / Time No Known Allergies Allergy Verified 04/28/22 18:07 Physical Exam Vitals: Vital Signs Temp Pulse Pulse Resp BP BP Pulse Ox 04/29/22 02:41 99.1 F 04/29/22 01:51 100.1 F H 99 20 118/74 93 L 04/28/22 22:36 99.7 F H 114 H 22 160/80 90 L 04/28/22 22:17 109 H 18 132/72 95 04/28/22 21:20 88 L 04/28/22 13:21 98.8 F 119 H 20 113/66 96 Intake and Output 04/28/22 04/28/22 04/29/22 14:59 22:59 06:59 Other: # Voids 2 Weight 70.307 kg 70.307 kg GENERAL: The patient is alert and oriented x3, not in any acute distress. Well developed, well nourished. HEENT: Pupils are round and equally reacting to light. EOMI. No scleral icterus. No conjunctival pallor. Normocephalic, atraumatic. No pharyngeal erythema. No thyromegaly. CARDIOVASCULAR: S1 and S2 present. No murmurs, rubs, or gallops. -PULMONARY: Chest is clear to auscultation, no wheezing . bilateral crepitation ABDOMEN: Soft, nontender, nondistended, normoactive bowel sounds. No palpable organomegaly. MUSCULOSKELETAL: No joint swelling or deformity. EXTREMITIES: No cyanosis, clubbing, or pedal edema. NEUROLOGICAL: Gross neurological examination did not reveal any focal deficits. SKIN: No rashes. no petechiae. Results CBC & Chem 7: 04/28/22 17:49 04/29/22 06:18 Labs: Abnormal Lab Results - Last 24 Hours (Table) 04/28/22 04/28/22 04/28/22 Range/Units 17:49 17:49 17:49 ESR 69 H (0-20) mm/hr Sodium 132 L (137-145) mmol/L Chloride 96 L (98-107) mmol/L BUN 18 H (7-17) mg/dL AST 50 H (14-36) U/L C-Reactive Protein 14.8 H (<1.0) mg/dL Procalcitonin 0.19 H (0.02-0.09) ng/mL Thrombosis Risk Factor Assmnt - Choose All That Apply Each Risk Factor Represents 2 Points: Age 61-74 years Thrombosis Risk Factor Assessment Total Risk Factor Score: 2 Thrombosis Risk Factor Assessment Level: Low Risk Assessment and Plan Assessment: acute Bilateral diffuse interstitial pneumonia, community acquired pneumonia Acute hypoxic respiratory failure Systemic inflammatory response with fever, tachycardia and tachypnea Dehydration History of mild rheumatoid arthritis, methotrexate on hold Plan: This is a pleasant 66 years old female who presents with acute pneumonia, hypoxia Continue with ceftriaxone and Zithromax Follow-up culture results IV fluids Infectious disease consult Pulmonary team consult Labs and medication were reviewed.. Continue same treatment. Continue with symptomatic treatment. Resume home medication. Monitor lytes and vitals. DVT and GI prophylaxis. Further recommendations as per clinical course of the patient DVT prophylaxis: Subcutaneous Lovenox GI Prophylaxis: Pepcid PT/OT: Pending Prognosis is guarded
[2022-04-29] MEDS: ENOXAPARIN 40 MG/0.4 ML SYRINGE SQ SCH (10:23)
[2022-04-29] MEDS: AZITHROMYCIN 500 MG TAB PO SCH (10:23)
[2022-04-29] MEDS ORDERED: RX INFO: IV CONTRAST WAS GIVEN 1 EACH MISC MISCELLANE PRN (11:20)
--- NOTE | 2022-04-29 12:57 | P.CONS ---
History of Present Illness - Reason for Consult Consult date: 04/29/22 pneumonia, hx of RA - History of Present Illness This is a inpatient hospital consult on a patient known to our practice and is regularly seen for rheumatoid arthritis. She has been on methotrexate 5 pills weekly and folic acid one tablet daily since January 2022 and has been on 2 separate prednisone tapers with initial one started in December and second one started in February. She also expressed concern at one point that the prednisone was increasing her anxiety. She was doing relatively okay until 04/27 visit where she complained of sudden onset fever, chills, general malaise and fatigue. At that time, she denied any cough or sinus congestion and had taken 2 separate Covid test at home that were both negative. She said that her last dose of methotrexate was taken on 04/19 and on 04/[address] Padron told patient that she was most likely suffering from a infection and to hold her methotrexate, increase folic acid to 1 mg 3 times daily and to be seen by the emergency room. Labs drawn in our office on 04/27 showed significantly high inflammatory markers including a ESR of 59 and CRP of 13.9. A microscopic urinalysis at that time showed 2+ leukocyte Estrace but her urine culture was negative. Today, patient is evaluated at bedside and is covered in several blankets. She keeps explaining that she cannot get warm. She is on 5 L of oxygen nasal cannula as her pulse oximetry dropped into the 80s on room air. She denies any joint pain, joint stiffness, or joint swelling. She is concerned about missing her methotrexate as she does not want to have a rheumatoid flare. She also complains of productive cough, fevers, malaise, and fatigue. 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 Chest x-ray 04/28/22: Diffuse pulmonary interstitial edema, could be acute pneumonia versus heart failure I spoke with Dr. Padron regarding patient case and methotrexate induced lung injury cannot be ruled out therefore we would recommend continuing folic acid 1 mg 3 times daily and holding methotrexate until further evaluation. We will defer the rest of her care to infectious disease, pulmonary, and admitting physician. Review of Systems Constitutional: Reports chills, Reports fatigue, Reports fever, Reports malaise, Reports night sweats, Reports poor appetite, Reports weakness Eyes: denies blurred vision Ears: deny: decreased hearing, ear discharge, earache, tinnitus Respiratory: Reports cough, Reports dyspnea Integumentary: Denies pruritus, Denies rash Psychiatric: Reports anxiety Endocrine: Reports fatigue Past Medical History Past Medical History: No Reported History Additional Past Medical History / Comment(s): colon polyp, RA History of Any Multi-Drug Resistant Organisms: None Reported Past Surgical History: Appendectomy, Hysterectomy, Tonsillectomy, Tubal Ligation Additional Past Surgical History / Comment(s): colonoscopy 2 weeks ago Past Anesthesia/Blood Transfusion Reactions: No Reported Reaction Past Psychological History: No Psychological Hx Reported Smoking Status: Never smoker Past Alcohol Use History: None Reported, Occasional Past Drug Use History: None Reported Medications and Allergies Home Medications Medication Instructions Recorded Confirmed Type Ibuprofen [Advil] 200 - 400 mg PO Q6HR PRN 03/19/19 04/28/22 History Folic Acid 2 mg PO DAILY 04/28/22 04/28/22 History Allergies Allergy/AdvReac Type Severity Reaction Status Date / Time No Known Allergies Allergy Verified 04/28/22 18:07 Physical Exam Vitals: Vital Signs Temp Pulse Pulse Resp BP BP Pulse Ox 04/29/22 08:08 93 L 04/29/22 08:00 98.0 F 95 14 97/63 90 L 04/29/22 02:41 99.1 F 04/29/22 01:51 100.1 F H 99 20 118/74 93 L 04/28/22 22:36 99.7 F H 114 H 22 160/80 90 L 04/28/22 22:17 109 H 18 132/72 95 04/28/22 21:20 88 L 04/28/22 13:21 98.8 F 119 H 20 113/66 96 Intake and Output 04/28/22 04/29/22 04/29/22 22:59 06:59 14:59 Other: # Voids 2 Weight 70.307 kg - Constitutional General appearance: average body habitus, no acute distress - EENT Eyes: PERRLA ENT: hearing grossly normal - Neck Neck: normal ROM Thyroid: bilateral: normal size - Respiratory Respiratory: bilateral: CTA - Cardiovascular Rhythm: regular Heart sounds: normal: S1, S2 - Gastrointestinal General gastrointestinal: normal bowel sounds, soft - Neurologic Neurologic: CNII-XII intact - Psychiatric Psychiatric: A&O x's 3 Results CBC & Chem 7: 04/28/22 17:49 04/29/22 06:18 Labs: Abnormal Lab Results - Last 24 Hours (Table) 04/28/22 04/28/22 04/28/22 Range/Units 17:49 17:49 17:49 ESR 69 H (0-20) mm/hr Sodium 132 L (137-145) mmol/L Chloride 96 L (98-107) mmol/L BUN 18 H (7-17) mg/dL Glucose (70-110) mg/dL AST 50 H (14-36) U/L C-Reactive Protein 14.8 H (<1.0) mg/dL Procalcitonin 0.19 H (0.02-0.09) ng/mL 04/29/22 Range/Units 06:18 ESR (0-20) mm/hr Sodium 134 L (137-145) mmol/L Chloride (98-107) mmol/L BUN (7-17) mg/dL Glucose 126 H (70-110) mg/dL AST (14-36) U/L C-Reactive Protein (<1.0) mg/dL Procalcitonin (0.02-0.09) ng/mL Chest x-ray: report reviewed Assessment and Plan Time with Patient: Greater than 30
--- NOTE | 2022-04-29 14:06 | CT ---
EXAMINATION TYPE: CT chest w con DATE OF EXAM: 04/29/2022 COMPARISON: 07/01/2016 HISTORY: Shortness of breath CT DLP: 259.2 mGycm Automated exposure control for dose reduction was used. TECHNIQUE: CT scan of the chest is performed with IV Contrast, patient injected with 100 ml mL of Isovue 370. M IP Images are created on CT scanner and reviewed. 3D reconstructed images are created on an [employer] workstation and reviewed. FINDINGS: LUNGS: Diffuse groundglass changes are seen bilaterally. No pleural effusion or pneumothorax. No siza ble pulmonary nodule. MEDIASTINUM: Aorta normal caliber. No significant atherosclerotic changes. Central pulmonary arteries enhance normally. There is borderline right hilar and subcarinal lymphadenopathy measuring short axi s of 1.1 cm. No significant coronary artery calcification or pericardial effusion. Heart size normal. OTHER: Hypertrophic and degenerative changes in the spine. A large calcification within the spleen n oted. Could represent a large granuloma. Additionally there is a well-circumscribed 1.9 cm calcified nodule in the left upper quadrant anterior to the spleen stable from prior exam likely related to syd cified splenule. Calcification within the left splenic artery could be associated with splenic artery aneurysm measuring approximately 1 cm. IMPRESSION: 1. Diffuse bilateral groundglass changes most likely etiology is a diffuse pneumonitis or opportunist ic infection. Viral pneumonia in the differential diagnosis. Pulmonary edema felt less likely given t he lack of pleural fluid. Hypersensitivity pneumonitis also a consideration. Nondescript borderline m ediastinal and right hilar adenopathy could be followed on a short-term basis. 2. Intra-abdominal chronic findings see above.
--- NOTE | 2022-04-29 16:29 | P.CNPUL ---
History of Present Illness Consult date: 04/29/22 Reason for consult: pneumonia History of present illness: This is a 66-year-old female patient was coming in for shortness of breath, hypoxic respiratory failure and fever and chills and progressive distances been going on for the past 7-10 days. The patient does not have any previous history of lung disease. No recurrent pneumonias. She was diagnosed having rheumatoid arthritis and the patient has been on immunosuppression treatment with methotrexate a total of 15 mg once a week that she takes every Tuesday. The patient has not had any major complications related to infections while being on this treatment. At the same time, the [place] and she has an extensive amount of cleaning and replaced with contaminated with mice droppings, bird droppings and possibly some molds. She is currently a to be quite contaminated in their quality being support. In any Rate, the patient comes into the hospital. No skin rashes. No diarrhea. No hemoptysis. No pleurisy. She has been infected with: Covid 19 in the past has recovered without any major issues and following that the patient has received all of her vaccination. Blood work shows a white count of 8.4, hemoglobin 15.2 and a platelet count of 279. Electrolytes are all within normal limits. Liver function tests are essentially within normal limits. Pro-calcitonin level is at 0.19. UA is negative. Patient is currently on examination Rocephin and Zithromax. She is currently on 5 L about 2 by nasal cannula. Review of Systems Constitutional: Reports fatigue, Reports fever Eyes: denies as per HPI, denies blurred vision, denies bulging eye, denies decreased vision, denies diplopia, denies discharge, denies dry eye, denies irritation, denies itching, denies pain, denies photophobia, denies loss of peripheral vision, denies loss of vision, denies tunnel vision/blind spots Ears: deny: decreased hearing, ear discharge, earache, tinnitus Ears, nose, mouth and throat: Reports as per HPI Breasts: absent: as per HPI, change in shape, gynecomastia, masses, nipple discharge, pain, skin changes, swelling Cardiovascular: Reports decreased exercise tolerance, Reports dyspnea on exertion Respiratory: Reports cough, Reports dyspnea Gastrointestinal: Reports as per HPI Genitourinary: Reports as per HPI Menstruation: Reports as per HPI Musculoskeletal: Reports as per HPI Musculoskeletal: absent: ankle pain, ankle stiffness, ankle swelling, as per HPI, elbow pain, elbow stiffness, elbow swelling, foot pain, foot stiffness, foot swelling, hand pain, hand stiffness, hand swelling, hip pain, hip stiffness, hip swelling, knee pain, knee stiffness, knee swelling, shoulder pain, shoulder stiffness, shoulder swelling, wrist pain, wrist stiffness, wrist swelling Integumentary: Reports as per HPI Neurological: Reports as per HPI Psychiatric: Reports as per HPI Endocrine: Reports as per HPI Hematologic/Lymphatic: Reports as per HPI Allergic/Immunologic: Reports as per HPI Past Medical History Past Medical History: No Reported History Additional Past Medical History / Comment(s): colon polyp, RA History of Any Multi-Drug Resistant Organisms: None Reported Past Surgical History: Appendectomy, Hysterectomy, Tonsillectomy, Tubal Ligation Additional Past Surgical History / Comment(s): colonoscopy 2 weeks ago Past Anesthesia/Blood Transfusion Reactions: No Reported Reaction Past Psychological History: No Psychological Hx Reported Smoking Status: Never smoker Past Alcohol Use History: None Reported, Occasional Past Drug Use History: None Reported Medications and Allergies Home Medications Medication Instructions Recorded Confirmed Type Ibuprofen [Advil] 200 - 400 mg PO Q6HR PRN 03/19/19 04/28/22 History Folic Acid 2 mg PO DAILY 04/28/22 04/28/22 History Allergies Allergy/AdvReac Type Severity Reaction Status Date / Time No Known Allergies Allergy Verified 04/28/22 18:07 Physical Exam Vitals: Vital Signs Temp Pulse Pulse Resp BP BP Pulse Ox 04/29/22 08:08 93 L 04/29/22 08:00 98.0 F 95 14 97/63 90 L 04/29/22 02:41 99.1 F 04/29/22 01:51 100.1 F H 99 20 118/74 93 L 04/28/22 22:36 99.7 F H 114 H 22 160/80 90 L 04/28/22 22:17 109 H 18 132/72 95 04/28/22 21:20 88 L Intake and Output 04/29/22 04/29/22 04/29/22 06:59 14:59 22:59 Other: # Voids 2 GENERAL: The patient is alert and oriented x3, not in any acute distress. Well developed, well nourished. Currently on 5 L O2 nasal cannula. His lactate my offer of HEENT: Pupils are round and equally reacting to light. EOMI. No scleral icterus. No conjunctival pallor. Normocephalic, atraumatic. No pharyngeal erythema. No thyromegaly. CARDIOVASCULAR: S1 and S2 present. No murmurs, rubs, or gallops. -PULMONARY: Chest is clear to auscultation, no wheezing . bilateral crepitation ABDOMEN: Soft, nontender, nondistended, normoactive bowel sounds. No palpable organomegaly. MUSCULOSKELETAL: No joint swelling or deformity. EXTREMITIES: No cyanosis, clubbing, or pedal edema. NEUROLOGICAL: Gross neurological examination did not reveal any focal deficits. SKIN: No rashes. no petechiae. Results - Laboratory Findings CBC and BMP: 04/28/22 17:49 04/29/22 06:18 Abnormal lab findings: Abnormal Labs 04/28/22 04/28/22 04/28/22 17:49 17:49 17:49 ESR 69 H Sodium 132 L Chloride 96 L BUN 18 H Glucose AST 50 H C-Reactive Protein 14.8 H Procalcitonin 0.19 H 04/29/22 06:18 ESR Sodium 134 L Chloride BUN Glucose 126 H AST C-Reactive Protein Procalcitonin - Diagnostic Findings Chest x-ray: image reviewed Assessment and Plan Plan: Acute hypoxic respiratory failure Acute bilateral pneumonia with diffuse bilateral pulmonary infiltrates, currently under investigation. The patient has been taking methotrexate on outpatient basis. Rule out routine community acquired pathogens including atypical pathogens. Ruled out for opportunistic infections including fungi, PCP, etc.. Rule out methotrexate lung toxicity. Acute interstitial lung disease related to rheumatoid arthritis felt to be less likely. Note that lost approximately 50. Her with methotrexate and in the form of hypersensitive pneumonitis. Nevertheless, the patient does not have any other GI, bone marrow or epithelial toxicity related to methotrexate. Shortness of breath secondary to above History of rheumatoid arthritis Plan Obtain a CAT scan of the chest to characterized pulmonary infiltrates Check mycoplasma antibodies Check a Legionella urine antigen Check histoplasma urine antigen and blood antigen and antibiotics Check Aspergillus antibodies We'll be stopping methotrexate continue Rocephin and Zithromax Abnormal Solu-Medrol 40 mg every 12 hours, discontinue helpful in methotrexate- induced lung toxicity Lovenox for DVT prophylaxis We'll continue to follow.
--- NOTE | 2022-04-29 22:58 | P.CONS ---
History of Present Illness - Reason for Consult Consult date: 04/29/22 - History of Present Illness Patient is a 66-year-old female with a past medical history significant for rheumatoid arthritis in this patient currently on methotrexate patient is presenting to the ER for evaluation of increasing shortness of breath and cough in this patient symptom has been going on for about a week to 9 days patient symptoms started with fatigue tremors and weakness patient says she was unable to get out of bed for 3 days patient complaining of shortness of breath and a cough which has been moderate intensity but not bring up any sputum no pleuritic chest pain no nausea no vomiting no abdominal pain or any diarrhea patient on presentation to the hospital did have a low-grade fever 100.1 F patient was tachycardic and hypoxic with need for supplemental oxygen patient did have normal white count kidney function has been normal AST was mildly elevated CRP was elevated urine has been negative influenza and COVID testing was negative blood cultures obtained which are currently pending patient did have a chest x-ray diffuse pulmonary interstitial edema appear new compared to old exam could be acute pneumonia or heart failure patient was admitted to hospital started on Rocephin and Zithromax infectious disease was consulted for further management of antibiotic therapy Past Medical History Past Medical History: No Reported History Additional Past Medical History / Comment(s): colon polyp, RA History of Any Multi-Drug Resistant Organisms: None Reported Past Surgical History: Appendectomy, Hysterectomy, Tonsillectomy, Tubal Ligation Additional Past Surgical History / Comment(s): colonoscopy 2 weeks ago Past Anesthesia/Blood Transfusion Reactions: No Reported Reaction Past Psychological History: No Psychological Hx Reported Smoking Status: Never smoker Past Alcohol Use History: None Reported Past Drug Use History: None Reported Medications and Allergies Home Medications Medication Instructions Recorded Confirmed Type Ibuprofen [Advil] 200 - 400 mg PO Q6HR PRN 03/19/19 04/28/22 History Folic Acid 2 mg PO DAILY 04/28/22 04/28/22 History Allergies Allergy/AdvReac Type Severity Reaction Status Date / Time No Known Allergies Allergy Verified 04/28/22 18:07 Physical Exam Vitals: Vital Signs Temp Pulse Pulse Resp BP BP Pulse Ox 04/29/22 08:08 93 L 04/29/22 08:00 98.0 F 95 14 97/63 90 L 04/29/22 02:41 99.1 F 04/29/22 01:51 100.1 F H 99 20 118/74 93 L 04/28/22 22:36 99.7 F H 114 H 22 160/80 90 L 04/28/22 22:17 109 H 18 132/72 95 04/28/22 21:20 88 L 04/28/22 13:21 98.8 F 119 H 20 113/66 96 Intake and Output 04/28/22 04/29/22 04/29/22 22:59 06:59 14:59 Other: # Voids 2 Weight 70.307 kg Results CBC & Chem 7: 04/28/22 17:49 04/29/22 06:18 Labs: Abnormal Lab Results - Last 24 Hours (Table) 04/28/22 04/28/22 04/28/22 Range/Units 17:49 17:49 17:49 ESR 69 H (0-20) mm/hr Sodium 132 L (137-145) mmol/L Chloride 96 L (98-107) mmol/L BUN 18 H (7-17) mg/dL Glucose (70-110) mg/dL AST 50 H (14-36) U/L C-Reactive Protein 14.8 H (<1.0) mg/dL Procalcitonin 0.19 H (0.02-0.09) ng/mL 04/29/22 Range/Units 06:18 ESR (0-20) mm/hr Sodium 134 L (137-145) mmol/L Chloride (98-107) mmol/L BUN (7-17) mg/dL Glucose 126 H (70-110) mg/dL AST (14-36) U/L C-Reactive Protein (<1.0) mg/dL Procalcitonin (0.02-0.09) ng/mL Assessment and Plan Plan: 1patient presented to hospital with generalized weakness no energy fever chills shortness of breath and cough which is dry in nature and with predominant incisional pain. With concern for possible atypical pneumonia high clinical suspicion for COVID however the COVID test came back negative influenza is negative. 2we will check urine for Legionella antigen and check an RSV PCR. 3check a procalcitonin level. 4continue with Rocephin and Zithromax while awaiting further work-up to be completed. We will follow on clinical condition and cultures to further adjust medication if needed Thank you for this consultation will follow this patient along with you Time with Patient: Greater than 30
[2022-04-29] MEDS: methylPREDNISolone SOD SUCCI 40 MG/ML 1 ML VIAL IV SCH (23:40)
[2022-04-29] MEDS: FAMOTIDINE 20 MG/2 ML VIAL IV SCH (23:41)
[2022-04-30] MEDS: SODIUM CHLORIDE 0.9% 1,000 ML IV SCH ×2 (03:49→22:02)
[2022-04-30 05:31] LABS: Mycoplasma IgG Antibody (EIA) 2.32 INDEX (<=0.90); Mycoplasma IgM Antibody 0.51 INDEX (<=0.90)
--- NOTE | 2022-04-30 08:18 | XR ---
EXAMINATION TYPE: XR chest 2V DATE OF EXAM: 04/30/2022 COMPARISON: 04/28/2022 INDICATION: Shortness of breath TECHNIQUE: Frontal and lateral views of the chest are obtained. FINDINGS: The heart size is normal. The pulmonary vasculature is mildly prominent, improved from comparison. Mild residual lower lobe infiltrates are present.. IMPRESSION: 1. Correlate for resolving volume overload and pulmonary edema. Continued follow-up is recommended
[2022-04-30] MEDS: ALBUTEROL NEBULIZED 2.5 MG/3 ML INHALATION SCH ×4 (08:41→20:54)
[2022-04-30 08:52] LABS: Basophils # (A) 0.02 X 10*3/uL (0.00-0.10); Basophils % (A) 0.3 %; Eosinophils # (A) 0 X 10*3/uL (0.04-0.35); Eosinophils % (A) 0 %; HCT 36.2 % (37.2-46.3); Immature Grans, Automated 0.5 %; Lymphocytes # (A) 0.64 X 10*3/uL (0.90-5.00); Lymphocytes % (A) 10.4 %; MCH 30.4 pg (27.0-32.0); MCHC 33.1 g/dL (32.0-37.0); MCV 91.6 fL (80.0-97.0); Mean Platelet Volume 10.1 fL (9.5-12.2); Monocytes # (A) 0.14 X 10*3/uL (0.20-1.00); Monocytes % (A) 2.3 %; NRBC Per 100 WBC 0 /100 WBCS (0.0-0.0); Neutrophils # (A) 5.34 X 10*3/uL (1.80-7.70); Neutrophils % (A) 86.5 %; Platelet Count 248 X 10*3/uL (140-440); RBC 3.95 X 10*6/uL (4.10-5.20); RDW 15.5 % (11.5-14.5); WBC 6.17 X 10*3/uL (4.50-10.00)
--- NOTE | 2022-04-30 08:59 | CA ---
Transthoracic Echo Report Name: Katheryn Hall Age: 66 Gender: F : 1955 Exam Date: 04/29/2022 13:10 Exam Location: [place] [facility] Ht (in): 64 Wt (lb): 155 Ordering Physician: Aline English Attending/Referring Phys: [id number], [place] [employer] Pricila Xiao RDCS Procedure CPT: Indications: SHORTNESS OF BREATH Cardiac Hx: Technical Quality: Good Contrast 1: Total Dose (mL): Contrast 2: Total Dose (mL): MEASUREMENTS (Male / Female) Normal Values 2D ECHO LV Diastolic Diameter PLAX 3.6 cm 4.2 - 5.9 / 3.9 - 5.3 cm LV Systolic Diameter PLAX 2.4 cm IVS Diastolic Thickness 1.0 cm 0.6 - 1.0 / 0.6 - 0.9 cm LVPW Diastolic Thickness 1.0 cm 0.6 - 1.0 / 0.6 - 0.9 cm LV Relative Wall Thickness 0.5 RV Internal Dim ED PLAX 3.3 cm LA Systolic Diameter LX 2.8 cm 3.0 - 4.0 / 2.7 - 3.8 cm LA Volume 28.8 cm??? 18 - 58 / 22 - 52 cm??? M-MODE Aortic Root Diameter MM 2.7 cm MV E Point Septal Separation 0.6 cm AV Cusp Separation MM 1.9 cm DOPPLER AV Peak Velocity 161.2 cm/s AV Peak Gradient 10.4 mmHg MV Area PHT 3.0 cm??? Mitral E Point Velocity 60.5 cm/s Mitral A Point Velocity 99.8 cm/s Mitral E to A Ratio 0.6 MV Deceleration Time 249.6 ms MV E' Velocity 10.9 cm/s Mitral E to MV E' Ratio 5.6 TR Peak Velocity 227.3 cm/s TR Peak Gradient 20.7 mmHg Right Ventricular Systolic Press 25.3 mmHg FINDINGS Left Ventricle Left ventricular ejection fraction is estimated at 60-65 %. Left ventricular cavity size normal. Left ventricular wall thickness normal. Right Ventricle Mild right ventricular dilatation. Right ventricular systolic pressure within normal limits. Right Atrium Normal right atrial size. Left Atrium Normal left atrial size. No evidence for an atrial septal defect. Mitral Valve Structurally normal mitral valve. No mitral stenosis, regurgitation or prolapse. Aortic Valve Trileaflet aortic valve. Focal thickening of the aortic valve cusps. Tricuspid Valve Mild tricuspid regurgitation. Pulmonic Valve Trace pulmonic regurgitation. Pericardium Normal pericardium. No pericardial effusion. Aorta Normal size aortic root and proximal ascending aorta. CONCLUSIONS Left ventricular size wall motion and systolic function are normal Previewed by: Dr. Juan West MD (Electronically Signed) Final Date: 30 April 2022 08:58
[2022-04-30 09:11] LABS: ALT 33 U/L (8-44); AST 46 U/L (13-35); Albumin 3.8 g/dL (3.8-4.9); Albumin/Globulin Ratio 1.31 (1.60-3.17); Alkaline Phosphatase 95 U/L (41-126); BUN/Creat Ratio 21.63 Ratio (12.00-20.00); Bilirubin, Conjugated <0.20 mg/dL (0.20-0.40); Blood Urea Nitrogen 17.3 mg/dL (9.0-27.0); Calcium 9.7 mg/dL (8.7-10.3); Chloride 101 mmol/L (96-109); Globulin 2.9 g/dL (1.6-3.3); Glucose 166 mg/dL (70-110); Magnesium 2.3 mg/dL (1.5-2.4); Non-African American GFR(CKD) 76.8 (60.0-200.0); Potassium 4.3 mmol/L (3.5-5.5); Sodium 137 mmol/L (135-145); Total Protein 6.7 g/dL (6.2-8.2)
[2022-04-30] MEDS: AZITHROMYCIN 500 MG TAB PO SCH (09:39)
[2022-04-30] MEDS: ENOXAPARIN 40 MG/0.4 ML SYRINGE SQ SCH (09:40)
[2022-04-30] MEDS: FAMOTIDINE 20 MG/2 ML VIAL IV SCH ×2 (10:40→22:02)
[2022-04-30] MEDS: methylPREDNISolone SOD SUCCI 40 MG/ML 1 ML VIAL IV SCH ×2 (10:40→22:01)
--- NOTE | 2022-04-30 14:55 | P.PN ---
Subjective Progress Note Date: 04/30/22 This is a 66-year-old female patient was coming in for shortness of breath, hypoxic respiratory failure and fever and chills and progressive distances been going on for the past 7-10 days. The patient does not have any previous history of lung disease. No recurrent pneumonias. She was diagnosed having rheumatoid arthritis and the patient has been on immunosuppression treatment with methotrexate a total of 15 mg once a week that she takes every Tuesday. The patient has not had any major complications related to infections while being on this treatment. At the same time, the [place] and she has an extensive amount of cleaning and replaced with contaminated with mice droppings, bird droppings and possibly some molds. She is currently a to be quite contaminated in their quality being support. In any Rate, the patient comes into the hospital. No skin rashes. No diarrhea. No hemoptysis. No pleurisy. She has been infected with: Covid 19 in the past has recovered without any major issues and following that the patient has received all of her vaccination. Blood work shows a white count of 8.4, hemoglobin 15.2 and a platelet count of 279. Electrolytes are all within normal limits. Liver function tests are essentially within normal limits. Pro-calcitonin level is at 0.19. UA is negative. Patient is currently on examination Rocephin and Zi thromax. She is currently on 5 L about 2 by nasal cannula. The patient is seen today 04/30/2022 in follow-up on the regular medical floor. She is currently sitting up at the bedside. Awake and alert in no acute distress. Feeling a bit better today compared to yesterday. Maintaining good O2 saturations in the mid 90s on 5 L/m per nasal cannula. Follow-up chest x-ray reveals resolving volume overload and pulmonary edema. Mild residual lower lobe infiltrates remain. Blood cultures reveal no growth. white count 6.1. Hemoglobin 12.0. Platelets 248. Sodium 137. Potassium 4.3. BUN 17. Cr eatinine 0.8. AST 46. ALT 33. Legionella antigen urine screen negative. RSV negative. Mycoplasma negative. She is continued on ceftriaxone, IV Solu-Medrol, Lovenox for DVT prophylaxis. Objective - Vital Signs Vital signs: Vital Signs Temp 97.8 F 04/30/22 08:00 Pulse 95 04/30/22 12:03 Resp 18 04/30/22 08:00 BP 102/70 04/30/22 08:00 Pulse Ox 95 04/30/22 08:41 FiO2 Intake & Output 04/29/22 04/30/22 04/30/22 18:59 06:59 18:59 Output Total 700 Balance -700 Output: Urine 700 Other: Voiding Method Toilet # Voids 2 0 - Exam GENERAL: The patient is alert and oriented x3, not in any acute distress. Well developed, well nourished. Currently on 5 L O2 nasal cannula. HEENT: Pupils are round and equally reacting to light. EOMI. No scleral icterus. No conjunctival pallor. Normocephalic, atraumatic. No pharyngeal erythema. No thyromegaly. CARDIOVASCULAR: S1 and S2 present. No murmurs, rubs, or gallops. -PULMONARY: Chest is clear to auscultation, no wheezing . bilateral crepitation ABDOMEN: Soft, nontender, nondistended, normoactive bowel sounds. No palpable organomegaly. MUSCULOSKELETAL: No joint swelling or deformity. EXTREMITIES: No cyanosis, clubbing, or pedal edema. NEUROLOGICAL: Gross neurological examination did not reveal any focal deficits. SKIN: No rashes. no petechiae. - Labs CBC & Chem 7: 04/30/22 05:49 04/30/22 05:49 Labs: Abnormal Lab Results - Last 24 Hours (Table) 04/29/22 04/30/22 04/30/22 Range/Units 06:18 05:49 05:49 RBC 3.95 L (4.10-5.20) X 10*6/uL Hct 36.2 L (37.2-46.3) % RDW 15.5 H (11.5-14.5) % Lymphocytes # 0.64 L (0.90-5.00) X 10*3/uL Monocytes # 0.14 L (0.20-1.00) X 10*3/uL Eosinophils # 0 L (0.04-0.35) X 10*3/uL BUN/Creatinine Ratio 21.63 H (12.00-20.00) Ratio Glucose 166 H (70-110) mg/dL Total Bilirubin 0.20 L (0.30-1.20) mg/dL Conjugated Bilirubin <0.20 L (0.20-0.40) mg/dL AST 46 H (13-35) U/L Albumin/Globulin Ratio 1.31 L (1.60-3.17) g/dL Mycoplasma pneumon IgG 2.32 H (<=0.90) INDEX Microbiology - Last 24 Hours (Table) 04/28/22 20:30 Blood Culture - Preliminary Blood No Growth after 24 hours 04/28/22 20:15 Blood Culture - Preliminary Blood No Growth after 24 hours Assessment and Plan Assessment: Acute hypoxic respiratory failure Acute bilateral pneumonia with diffuse bilateral pulmonary infiltrates, currently under investigation. The patient has been taking methotrexate on outpatient basis. Rule out routine community acquired pathogens including atypical pathogens. Ruled out for opportunistic infections including fungi, PCP, etc.. Rule out methotrexate lung toxicity. Acute interstitial lung disease related to rheumatoid arthritis felt to be less likely. Note that lost approximately 50. Her with methotrexate and in the form of hypersensitive pneumonitis. Nevertheless, the patient does not have any other GI, bone marrow or epithelial toxicity related to methotrexate. Shortness of breath secondary to above History of rheumatoid arthritis Plan: The patient was seen and evaluated Chest x-ray, labs and medications reviewed Improved today compared to yesterday Titrate down the FiO2 as tolerated Increase her activity as tolerated We will continue to follow I have personally seen and examined the patient, performed the documentation and the assessment and plan as written. Number of minutes spent on the visit: 10. I have personally seen and examined the patient and reviewed the documentation. I performed a joint evaluation with the nurse practitioner in this evaluation was done more than 20 minutes. I fully agree with the documentation above and the plan of care. Clinically improving. Continue the antibiotics. Continue the steroids. Chest x-rays also improving. We'll continue to follow
--- NOTE | 2022-04-30 17:58 | P.PN ---
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 She is complaining of from cough with no phlegm and dyspnea but no chest pain or abdominal pain area she feels some tightness in her throat. No diarrhea, no dysuria or urinary complaints. She has mild headache and dizziness which is nonspecific, no weakness or numbness. Smoking, illicit drugs. She drinks alcohol occasionally Vitals showing fever of 99.7. Tachycardia of 119 on admission, blood pressure 113/66, tachypneic and 20 on admission and saturation 96% on room air on admission. Later on oxygen saturation dropped to 80% on room air CBC is unremarkable, ESR is elevated 69 Sodium 132, creatinine 0.8. BUN is 18 which is elevated Liver enzymes not elevated, TSH normal 4.0. CRP elevated 14.8. Urine analysis is negative. The influenza and covid viruses are negative, undetected Chest x-ray, diffuse pulmonary interstitial edema appears new compared to old exam and could be acute pneumonia or acute failure. Follow-up is recommended Patient is a started on Zithromax and ceftriaxone in the emergency room as well as normal saline 75 mL/h infectious disease team was consulted 04/30/2022 Patient feels significantly improved, her oxygen requirement was 5 L/m in the morning with saturating 95% which potential for tapering down. No fever today. Her chest x-ray showing improvement compared to yesterday She kept on ceftriaxone, Zithromax, Solu-Medrol 40 mg twice daily and normal saline at 75 mL/h. Methotrexate still on hold. Objective - Vital Signs Vital signs: Vital Signs Temp 97.8 F 04/30/22 08:00 Pulse 95 04/30/22 12:03 Resp 18 04/30/22 08:00 BP 102/70 04/30/22 08:00 Pulse Ox 95 04/30/22 08:41 FiO2 Intake & Output 04/29/22 04/30/22 04/30/22 18:59 06:59 18:59 Output Total 700 Balance -700 Output: Urine 700 Other: Voiding Method Toilet # Voids 2 0 - Exam GENERAL: The patient is alert and oriented x3, not in any acute distress. Well developed, well nourished. HEENT: Pupils are round and equally reacting to light. EOMI. No scleral icterus. No conjunctival pallor. Normocephalic, atraumatic. No pharyngeal erythema. No thyromegaly. CARDIOVASCULAR: S1 and S2 present. No murmurs, rubs, or gallops. PULMONARY: Chest is clear to auscultation, no wheezing or crackles. ABDOMEN: Soft, nontender, nondistended, normoactive bowel sounds. No palpable organomegaly. MUSCULOSKELETAL: No joint swelling or deformity. EXTREMITIES: No cyanosis, clubbing, or pedal edema. NEUROLOGICAL: Gross neurological examination did not reveal any focal deficits. SKIN: No rashes. no petechiae. - Labs CBC & Chem 7: 04/30/22 05:49 04/30/22 05:49 Labs: Abnormal Lab Results - Last 24 Hours (Table) 04/29/22 04/30/22 04/30/22 Range/Units 06:18 05:49 05:49 RBC 3.95 L (4.10-5.20) X 10*6/uL Hct 36.2 L (37.2-46.3) % RDW 15.5 H (11.5-14.5) % Lymphocytes # 0.64 L (0.90-5.00) X 10*3/uL Monocytes # 0.14 L (0.20-1.00) X 10*3/uL Eosinophils # 0 L (0.04-0.35) X 10*3/uL BUN/Creatinine Ratio 21.63 H (12.00-20.00) Ratio Glucose 166 H (70-110) mg/dL Total Bilirubin 0.20 L (0.30-1.20) mg/dL Conjugated Bilirubin <0.20 L (0.20-0.40) mg/dL AST 46 H (13-35) U/L Albumin/Globulin Ratio 1.31 L (1.60-3.17) g/dL Mycoplasma pneumon IgG 2.32 H (<=0.90) INDEX Microbiology - Last 24 Hours (Table) 04/28/22 20:30 Blood Culture - Preliminary Blood No Growth after 24 hours 04/28/22 20:15 Blood Culture - Preliminary Blood No Growth after 24 hours Assessment and Plan Assessment: acute Bilateral diffuse interstitial pneumonia, community acquired pneumonia, improving Acute hypoxic respiratory failure Systemic inflammatory response with fever, tachycardia and tachypnea Dehydration History of mild rheumatoid arthritis, methotrexate on hold Plan: This is a pleasant 66 years old female who presents with acute pneumonia, hypoxia Continue with ceftriaxone and Zithromax Follow-up culture results IV fluids Infectious disease consult Pulmonary team consult Labs and medication were reviewed.. Continue same treatment. Continue with s ymptomatic treatment. Resume home medication. Monitor lytes and vitals. DVT and GI prophylaxis. Further recommendations as per clinical course of the patient DVT prophylaxis: Subcutaneous Lovenox GI Prophylaxis: Pepcid PT/OT: Pending Prognosis is guarded
[2022-04-30] MEDS: ACETAMINOPHEN TAB 325 MG TAB PO PRN (22:02)
[2022-05-01] MEDS: SODIUM CHLORIDE 0.9% 1,000 ML IV SCH ×2 (02:47→22:47)
[2022-05-01] MEDS: ALBUTEROL NEBULIZED 2.5 MG/3 ML INHALATION SCH ×4 (07:18→20:41)
--- NOTE | 2022-05-01 07:30 | P.PN ---
Subjective Progress Note Date: 04/30/22 Principal diagnosis: Possible pneumonia Patient is a 66 year old female with a past medical history significant for rheumatoid arthritis presenting to the hospital with increasing shortness of breath and cough in this patient did have a bilateral institution fitted with concern for possible atypical pneumonia. On today's evaluation that is 04/30/2022, the patient denies having any fevers or any chills patient is feeling better and is breathing slightly comfortably p atient is down to 5 L nasal cannula, the patient denies having any chest pain she continued to have a cough with occasional sputum or hemoptysis denies any nausea no vomiting no abdominal pain no diarrhea Objective - Vital Signs Vital signs: Vital Signs Temp 97.8 F 04/30/22 08:00 Pulse 95 04/30/22 12:03 Resp 18 04/30/22 08:00 BP 102/70 04/30/22 08:00 Pulse Ox 95 04/30/22 08:41 FiO2 Intake & Output 04/29/22 04/30/22 04/30/22 18:59 06:59 18:59 Output Total 700 Balance -700 Output: Urine 700 Other: Voiding Method Toilet # Voids 2 0 - Exam GENERAL DESCRIPTION: An elderly female lying in bed in no distress RESPIRATORY SYSTEM: Unlabored breathing , decreased intensity of breath sounds HEART: S1 S2 regular rate and rhythm , ABDOMEN: Soft , no tenderness EXTREMITIES: No edema feet - Labs CBC & Chem 7: 04/30/22 05:49 04/30/22 05:49 Labs: Abnormal Lab Results - Last 24 Hours (Table) 04/29/22 04/30/22 04/30/22 Range/Units 06:18 05:49 05:49 RBC 3.95 L (4.10-5.20) X 10*6/uL Hct 36.2 L (37.2-46.3) % RDW 15.5 H (11.5-14.5) % Lymphocytes # 0.64 L (0.90-5.00) X 10*3/uL Monocytes # 0.14 L (0.20-1.00) X 10*3/uL Eosinophils # 0 L (0.04-0.35) X 10*3/uL BUN/Creatinine Ratio 21.63 H (12.00-20.00) Ratio Glucose 166 H (70-110) mg/dL Total Bilirubin 0.20 L (0.30-1.20) mg/dL Conjugated Bilirubin <0.20 L (0.20-0.40) mg/dL AST 46 H (13-35) U/L Albumin/Globulin Ratio 1.31 L (1.60-3.17) g/dL Mycoplasma pneumon IgG 2.32 H (<=0.90) INDEX Microbiology - Last 24 Hours (Table) 04/28/22 20:30 Blood Culture - Preliminary Blood No Growth after 24 hours 04/28/22 20:15 Blood Culture - Preliminary Blood No Growth after 24 hours Assessment and Plan (1) Pneumonia Current Visit: Yes Status: Acute Code(s): J18.9 - PNEUMONIA, UNSPECIFIED ORGANISM SNOMED Code(s): 737237532 Plan: 1patient presented to hospital with generalized weakness no energy fever chills shortness of breath and cough which is dry in nature and with predominant incisional pain. With concern for possible atypical pneumonia high clinical suspicion for COVID however the COVID test came back negative influenza is negative, patient also have a negative Legionella antigen and RSV PCR. 2patient seemed to have shown some clinical improvement and will continue with Rocephin and Zithromax while awaiting further work-up to be completed. Time with Patient: Less than 30
--- NOTE | 2022-05-01 07:42 | XR ---
EXAMINATION TYPE: XR chest 1V portable DATE OF EXAM: 05/01/2022 Comparison: 04/30/2022 Clinical History: 66-year-old female Follow up pneumonitis Findings: Heart normal size. Aorta and pulmonary vasculature are within normal limits. Mild patchy interstitial densities in the mid and lower lungs, right greater than left relative unchanged. Impression: Mild patchy interstitial density/groundglass in the mid and lower lungs relatively unchanged.
[2022-05-01] MEDS: FAMOTIDINE 20 MG/2 ML VIAL IV SCH (08:06)
[2022-05-01] MEDS: methylPREDNISolone SOD SUCCI 40 MG/ML 1 ML VIAL IV SCH (08:06)
[2022-05-01] MEDS: ENOXAPARIN 40 MG/0.4 ML SYRINGE SQ SCH (08:07)
[2022-05-01] MEDS: predniSONE 20 MG TAB PO SCH (11:45)
[2022-05-01] MEDS: LEVOFLOXACIN 750 MG TAB PO SCH (11:46)
--- NOTE | 2022-05-01 12:00 | P.PN ---
Subjective Progress Note Date: 05/01/22 This is a 66-year-old female patient was coming in for shortness of breath, hypoxic respiratory failure and fever and chills and progressive distances been going on for the past 7-10 days. The patient does not have any previous history of lung disease. No recurrent pneumonias. She was diagnosed having rheumatoid arthritis and the patient has been on immunosuppression treatment with methotrexate a total of 15 mg once a week that she takes every Tuesday. The patient has not had any major complications related to infections while being on this treatment. At the same time, the [place] and she has an extensive amount of cleaning and replaced with contaminated with mice droppings, bird droppings and possibly some molds. She is currently a to be quite contaminated in their quality being support. In any Rate, the patient comes into the hospital. No skin rashes. No diarrhea. No hemoptysis. No pleurisy. She has been infected with: Covid 19 in the past has recovered without any major issues and following that the patient has received all of her vaccination. Blood work shows a white count of 8.4, hemoglobin 15.2 and a platelet count of 279. Electrolytes are all within normal limits. Liver function tests are essentially within normal limits. Pro-calcitonin level is at 0.19. UA is negative. Patient is currently on examination Rocephin and Zi thromax. She is currently on 5 L about 2 by nasal cannula. The patient is seen today 04/30/2022 in follow-up on the regular medical floor. She is currently sitting up at the bedside. Awake and alert in no acute distress. Feeling a bit better today compared to yesterday. Maintaining good O2 saturations in the mid 90s on 5 L/m per nasal cannula. Follow-up chest x-ray reveals resolving volume overload and pulmonary edema. Mild residual lower lobe infiltrates remain. Blood cultures reveal no growth. white count 6.1. Hemoglobin 12.0. Platelets 248. Sodium 137. Potassium 4.3. BUN 17. Cr eatinine 0.8. AST 46. ALT 33. Legionella antigen urine screen negative. RSV negative. Mycoplasma negative. She is continued on ceftriaxone, IV Solu-Medrol, Lovenox for DVT prophylaxis. 05/01/2022, the patient continues to improve. No chest pain. No shortness of breath. Currently on room air oxygen. She has developed limited diarrhea. He remains on IV Solu-Medrol. Objective - Vital Signs Vital signs: Vital Signs Temp 97.4 F L 05/01/22 08:07 Pulse 90 05/01/22 11:33 Resp 17 05/01/22 08:07 BP 104/64 05/01/22 08:07 Pulse Ox 93 L 05/01/22 08:07 FiO2 Intake & Output 04/30/22 05/01/22 05/01/22 18:59 06:59 18:59 Output Total 350 Balance -350 Output: Urine 350 Other: Voiding Method Toilet # Voids 4 1 - Exam GENERAL: The patient is alert and oriented x3, not in any acute distress. Well developed, well nourished. Currently on room air oxygen HEENT: Pupils are round and equally reacting to light. EOMI. No scleral icterus. No conjunctival pallor. Normocephalic, atraumatic. No pharyngeal erythema. No thyromegaly. CARDIOVASCULAR: S1 and S2 present. No murmurs, rubs, or gallops. -PULMONARY: Chest is clear to auscultation, no wheezing . bilateral crepitation ABDOMEN: Soft, nontender, nondistended, normoactive bowel sounds. No palpable organomegaly. MUSCULOSKELETAL: No joint swelling or deformity. EXTREMITIES: No cyanosis, clubbing, or pedal edema. NEUROLOGICAL: Gross neurological examination did not reveal any focal deficits. SKIN: No rashes. no petechiae. - Labs CBC & Chem 7: 04/30/22 05:49 04/30/22 05:49 Labs: Microbiology - Last 24 Hours (Table) 04/28/22 20:15 Blood Culture - Preliminary Blood No Growth after 48 hours 04/28/22 20:30 Blood Culture - Preliminary Blood No Growth after 48 hours Assessment and Plan Plan: Acute hypoxic respiratory failure, improving and the patient is currently on room air oxygen Acute bilateral pneumonia with diffuse bilateral pulmonary infiltrates, currently under investigation. The patient has been taking methotrexate on outpatient basis. Rule out routine community acquired pathogens including atypical pathogens. Ruled out for opportunistic infections including fungi, PCP, etc.. Rule out methotrexate lung toxicity. Acute interstitial lung disease related to rheumatoid arthritis felt to be less likely. Note that lost approximately 50. Her with methotrexate and in the form of hypersensitive pneumonitis. Nevertheless, the patient does not have any other GI, bone marrow or epithelial toxicity related to methotrexate. The patient is clinically improving. Final diagnoses not been achieved Shortness of breath secondary to above History of rheumatoid arthritis Antibiotic induced diarrhea Plan Discontinue the IV Solu Medrol and put the patient prednisone burst taper Discontinue Rocephin and Zithromax and put the patient on oral Levaquin Increase mobility Awaiting fungal serology and antigens and the rest of the workup has been essentially negative for now. Physical potentially an acute hypersensitivity reaction tolerance methotrexate which was discontinued Possible discharge home today to no diarrhea. The diarrhea persists, check a stool for C. diff We'll continue to follow.
--- NOTE | 2022-05-01 18:16 | P.PN ---
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 She is complaining of from cough with no phlegm and dyspnea but no chest pain or abdominal pain area she feels some tightness in her throat. No diarrhea, no dysuria or urinary complaints. She has mild headache and dizziness which is nonspecific, no weakness or numbness. Smoking, illicit drugs. She drinks alcohol occasionally Vitals showing fever of 99.7. Tachycardia of 119 on admission, blood pressure 113/66, tachypneic and 20 on admission and saturation 96% on room air on admission. Later on oxygen saturation dropped to 80% on room air CBC is unremarkable, ESR is elevated 69 Sodium 132, creatinine 0.8. BUN is 18 which is elevated Liver enzymes not elevated, TSH normal 4.0. CRP elevated 14.8. Urine analysis is negative. The influenza and covid viruses are negative, undetected Chest x-ray, diffuse pulmonary interstitial edema appears new compared to old exam and could be acute pneumonia or acute failure. Follow-up is recommended Patient is a started on Zithromax and ceftriaxone in the emergency room as well as normal saline 75 mL/h infectious disease team was consulted 04/30/2022 Patient feels significantly improved, her oxygen requirement was 5 L/m in the morning with saturating 95% which potential for tapering down. No fever today. Her chest x-ray showing improvement compared to yesterday She kept on ceftriaxone, Zithromax, Solu-Medrol 40 mg twice daily and normal saline at 75 mL/h. Methotrexate still on hold. 05/01/2022 Patient feels better, her dyspnea significantly improved, she was up in her room today and took a shower. She is doing well and gait is normal. She is on room air currently and her treatment were switched to oral Levaquin and prednisone. She reports some diarrhea, which is been tested for C. diff, however later on the evening of the testis has been counseled by the lab. Chest x-ray: Mild patchy interstitial density/groundglass in the mid and lower l ungs relatively unchanged We will keep monitoring for now. Monitor bowel movement as well. Objective - Vital Signs Vital signs: Vital Signs Temp 97.4 F L 05/01/22 08:07 Pulse 90 05/01/22 11:33 Resp 17 05/01/22 08:07 BP 104/64 05/01/22 08:07 Pulse Ox 93 L 05/01/22 08:07 FiO2 Intake & Output 04/30/22 05/01/22 05/01/22 18:59 06:59 18:59 Output Total 350 Balance -350 Output: Urine 350 Other: Voiding Method Toilet # Voids 4 1 - Exam GENERAL: The patient is alert and oriented x3, not in any acute distress. Well developed, well nourished. HEENT: Pupils are round and equally reacting to light. EOMI. No scleral icterus. No conjunctival pallor. Normocephalic, atraumatic. No pharyngeal erythema. No thyromegaly. CARDIOVASCULAR: S1 and S2 present. No murmurs, rubs, or gallops. PULMONARY: Chest is clear to auscultation, no wheezing or crackles. ABDOMEN: Soft, nontender, nondistended, normoactive bowel sounds. No palpable organomegaly. MUSCULOSKELETAL: No joint swelling or deformity. EXTREMITIES: No cyanosis, clubbing, or pedal edema. NEUROLOGICAL: Gross neurological examination did not reveal any focal deficits. SKIN: No rashes. no petechiae. - Labs CBC & Chem 7: 04/30/22 05:49 04/30/22 05:49 Labs: Microbiology - Last 24 Hours (Table) 04/28/22 20:15 Blood Culture - Preliminary Blood No Growth after 48 hours 04/28/22 20:30 Blood Culture - Preliminary Blood No Growth after 48 hours Assessment and Plan Assessment: acute Bilateral diffuse interstitial pneumonia, community acquired pneumonia, improving Acute hypoxic respiratory failure Systemic inflammatory response with fever, tachycardia and tachypnea Dehydration History of mild rheumatoid arthritis, methotrexate on hold Plan: This is a pleasant 66 years old female who presents with acute pneumonia, hypoxia Continue with Levaquin Continue with prednisone C. diff test was canceled but monitor for another 24 hours Infectious disease consult Pulmonary team consult Labs and medication were reviewed.. Continue same treatment. Continue with symptomatic treatment. Resume home medication. Monitor lytes and vitals. DVT and GI prophylaxis. Further recommendations as per clinical course of the patient DVT prophylaxis: Subcutaneous Lovenox GI Prophylaxis: Pepcid
[2022-05-01] MEDS: FAMOTIDINE 20 MG TAB PO SCH (20:10)
[2022-05-01] MEDS: ACETAMINOPHEN TAB 325 MG TAB PO PRN (22:11)
[2022-05-02 03:11] VITALS: TEMP 97.6
[2022-05-02] MEDS: ALBUTEROL NEBULIZED 2.5 MG/3 ML INHALATION SCH ×2 (07:51→11:40)
[2022-05-02] MEDS: FAMOTIDINE 20 MG TAB PO SCH (07:51)
[2022-05-02] MEDS: predniSONE 20 MG TAB PO SCH (07:52)
[2022-05-02] MEDS: LEVOFLOXACIN 750 MG TAB PO SCH (07:52)
[2022-05-02] MEDS: ENOXAPARIN 40 MG/0.4 ML SYRINGE SQ SCH (07:52)
[2022-05-02 07:57] VITALS: BP 136/79; PULSE 82; RESP 17
--- NOTE | 2022-05-02 10:16 | P.PN ---
Subjective Progress Note Date: 05/01/22 Principal diagnosis: Possible pneumonia Patient is a 66 year old female with a past medical history significant for rheumatoid arthritis presenting to the hospital with increasing shortness of breath and cough in this patient did have a bilateral institution fitted with concern for possible atypical pneumonia. On today's evaluation that is 05/01/2022, the patient denies having any fever or any chills, the patient is feeling better and is breathing slightly comfortably on nasal cannula, the patient denies having any chest pain she continued to have a cough with occasional sputum or hemoptysis denies any nausea no vomiting no abdominal pain no diarrhea Objective - Vital Signs Vital signs: Vital Signs Temp 97.4 F L 05/01/22 14:48 Pulse 88 05/01/22 15:59 Resp 18 05/01/22 14:48 BP 126/69 05/01/22 14:48 Pulse Ox 93 L 05/01/22 14:48 FiO2 Intake & Output 04/30/22 05/01/22 05/01/22 18:59 06:59 18:59 Output Total 350 Balance -350 Output: Urine 350 Other: Voiding Method Toilet # Voids 4 1 - Exam GENERAL DESCRIPTION: An elderly female lying in bed in no distress RESPIRATORY SYSTEM: Unlabored breathing , decreased intensity of breath sounds HEART: S1 S2 regular rate and rhythm , ABDOMEN: Soft , no tenderness EXTREMITIES: No edema feet - Labs CBC & Chem 7: 04/30/22 05:49 04/30/22 05:49 Labs: Microbiology - Last 24 Hours (Table) 04/28/22 20:15 Blood Culture - Preliminary Blood No Growth after 48 hours 04/28/22 20:30 Blood Culture - Preliminary Blood No Growth after 48 hours Assessment and Plan (1) Pneumonia Current Visit: Yes Status: Acute Code(s): J18.9 - PNEUMONIA, UNSPECIFIED ORG ANISM SNOMED Code(s): 432234121 Plan: 1patient presented to hospital with generalized weakness no energy fever chills shortness of breath and cough which is dry in nature and with predominant incisional pain. With concern for possible atypical pneumonia high clinical suspicion for COVID however the COVID test came back negative influenza is negative, patient also have a negative Legionella antigen and RSV PCR. 2patient sehas shown overallme clinical improvement, antibiotic has been switched to oral Levaquin to continue and monitor clinical course closely Time with Patient: Less than 30
--- NOTE | 2022-05-02 11:34 | P.PN ---
Subjective Progress Note Date: 05/02/22 This is a 66-year-old female patient was coming in for shortness of breath, hypoxic respiratory failure and fever and chills and progressive distances been going on for the past 7-10 days. The patient does not have any previous history of lung disease. No recurrent pneumonias. She was diagnosed having rheumatoid arthritis and the patient has been on immunosuppression treatment with methotrexate a total of 15 mg once a week that she takes every Tuesday. The patient has not had any major complications related to infections while being on this treatment. At the same time, the [place] and she has an extensive amount of cleaning and replaced with contaminated with mice droppings, bird droppings and possibly some molds. She is currently a to be quite contaminated in their quality being support. In any Rate, the patient comes into the hospital. No skin rashes. No diarrhea. No hemoptysis. No pleurisy. She has been infected with: Covid 19 in the past has recovered without any major issues and following that the patient has received all of her vaccination. Blood work shows a white count of 8.4, hemoglobin 15.2 and a platelet count of 279. Electrolytes are all within normal limits. Liver function tests are essentially within normal limits. Pro-calcitonin level is at 0.19. UA is negative. Patient is currently on examination Rocephin and Zi thromax. She is currently on 5 L about 2 by nasal cannula. The patient is seen today 04/30/2022 in follow-up on the regular medical floor. She is currently sitting up at the bedside. Awake and alert in no acute distress. Feeling a bit better today compared to yesterday. Maintaining good O2 saturations in the mid 90s on 5 L/m per nasal cannula. Follow-up chest x-ray reveals resolving volume overload and pulmonary edema. Mild residual lower lobe infiltrates remain. Blood cultures reveal no growth. white count 6.1. Hemoglobin 12.0. Platelets 248. Sodium 137. Potassium 4.3. BUN 17. Cr eatinine 0.8. AST 46. ALT 33. Legionella antigen urine screen negative. RSV negative. Mycoplasma negative. She is continued on ceftriaxone, IV Solu-Medrol, Lovenox for DVT prophylaxis. 05/01/2022, the patient continues to improve. No chest pain. No shortness of breath. Currently on room air oxygen. She has developed limited diarrhea. He remains on IV Solu-Medrol. 05/02/2022, no complains and the patient is currently on room air oxygen. No nausea vomiting or diarrhea. No chest pain. No shortness of breath. She is currently on oral Levaquin and a prednisone burst taper. Objective - Vital Signs Vital signs: Vital Signs Temp 97.6 F 05/02/22 07:56 Pulse 82 05/02/22 07:56 Resp 17 05/02/22 07:56 BP 136/79 05/02/22 07:56 Pulse Ox 92 L 05/02/22 07:56 FiO2 Intake & Output 05/01/22 05/02/22 05/02/22 18:59 06:59 18:59 Intake Total 800 Balance 800 Intake: Oral 800 Other: Voiding Method Toilet # Voids 3 2 - Exam GENERAL: The patient is alert and oriented x3, not in any acute distress. Well developed, well nourished. Currently on room air oxygen HEENT: Pupils are round and equally reacting to light. EOMI. No scleral icterus. No conjunctival pallor. Normocephalic, atraumatic. No pharyngeal erythema. No thyromegaly. CARDIOVASCULAR: S1 and S2 present. No murmurs, rubs, or gallops. -PULMONARY: Chest is clear to auscultation, no wheezing . bilateral crepitation ABDOMEN: Soft, nontender, nondistended, normoactive bowel sounds. No palpable organomegaly. MUSCULOSKELETAL: No joint swelling or deformity. EXTREMITIES: No cyanosis, clubbing, or pedal edema. NEUROLOGICAL: Gross neurological examination did not reveal any focal deficits. SKIN: No rashes. no petechiae. - Labs CBC & Chem 7: 04/30/22 05:49 04/30/22 05:49 Labs: Microbiology - Last 24 Hours (Table) 04/28/22 20:30 Blood Culture - Preliminary Blood No Growth after 72 hours 04/28/22 20:15 Blood Culture - Preliminary Blood No Growth after 72 hours Assessment and Plan Plan: Acute hypoxic respiratory failure, improving and the patient is currently on room air oxygen Acute bilateral pneumonia with diffuse bilateral pulmonary infiltrates, currently under investigation. The patient has been taking methotrexate on outpatient basis. Rule out routine community acquired pathogens including atypical pathogens. Ruled out for opportunistic infections including fungi, PCP, etc.. Rule out methotrexate lung toxicity. Acute interstitial lung disease related to rheumatoid arthritis felt to be less likely. Note that lost approximately 50. Her with methotrexate and in the form of hypersensitive pne umonitis. Nevertheless, the patient does not have any other GI, bone marrow or epithelial toxicity related to methotrexate. The patient is clinically improving. Final diagnoses not been achieved Shortness of breath secondary to above History of rheumatoid arthritis Diarrhea/Antibiotic induced Plan Acute hypoxic respiratory failure has recovered Complete a prednisone burst taper The patient was started on prednisone 40 mg to be negative by 10 mg every 4 days Antibiotics has been switched to Levaquin and the patient will complete a 5 day course 750 mg on a daily basis See me in the office in 2 weeks time Awaiting the final fungal serologies Keep the patient off methotrexate for now No active diarrhea Home today
--- NOTE | 2022-05-02 19:53 | P.DS ---
Providers Date of admission: 04/30/22 13:41 Attending physician: Raghav Adorno Consults: 04/28/22 20:19 Consult Physician Routine Consulting Provider: Arelis Fernandes Consult Reason/Comments: elevated inflammatory markers Do you want consulting provider notified?: Yes 04/29/22 10:11 Consult Physician Urgent Consulting Provider: Aime Sharma Consult Reason/Comments: pna Do you want consulting provider notified?: Yes 04/29/22 12:47 Consult Physician Routine Consulting Provider: Sally Iraheta Consult Reason/Comments: pneumonia, hx of RA Do you want consulting provider notified?: Already Contacted Primary care physician: Tree Perez Hospital Course: Diagnoses: acute Bilateral diffuse interstitial pneumonia, community acquired pneumonia, improving Acute hypoxic respiratory failure. Resolved Systemic inflammatory response with fever, tachycardia and tachypnea. Resolved Dehydration. Resolved History of mild rheumatoid arthritis, methotrexate on hold upon discharge Hospital course: This is a pleasant 66 years old female with past medical history of rheumatoid arthritis on methotrexate at home and she follows up with Dr. iraheta signal system testing maintainer Patient states for the last 2 weeks she is been feeling tired, short of breath with sweating, patient with bilateral pneumonia. Suspected to be community acquired pneumonia she was treated with IV antibiotics ceftriaxone and Zithromax except was put on hold during hospitalization upon discharge. Patient showed significant interval improvement and dramatically she is back to her normal self. Today when we walked up into her room, she was already postop sitting in chair feeling back to her normal self and asked to be discharged today. She denies dyspnea or chest pain no other complaints. No change in urine or bowel habits. No fever. She is on room air and she does not need oxygen upon discharge. Patient was fit for discharge by pulmonary service. Upon the recommendation patient will be discharged on Levaquin 750 mg 5 days and prednisone burst and taper. Problems and management plan were discussed with the patient and he verbalized understanding and acceptance Patient was found stable and can be discharged home however he needs follow-up as an outpatient. Patient was instructed to follow up with PCP Dr. Perez within one week and patient agrees Patient was instructed to follow up with lubricating specialist Dr. Sharma in 1-2 weeks and her signal system testing maintainer Dr. iraheta and she agrees to call and make her own appointments as today is week Physical exam Gen: patient is a AAOx3, no distress CVS: S1-S2, RRR, no murmur Lungs: B/L CTA, no wheezing Abdomen: soft, no distention, no tenderness, positive bowel sounds Extremity: no leg edema or induration Time spent more than 35 minutes Patient Condition at Discharge: Fair Plan - Discharge Summary Discharge Rx Participant: Yes New Discharge Prescriptions: New Levofloxacin [Levaquin] 750 mg PO DAILY 5 Days #5 tab Famotidine [Pepcid] 20 mg PO DAILY #30 tab predniSONE 10 mg PO DIRECTED #40 tab Acetaminophen Tab [Tylenol] 650 mg PO Q6HR PRN tab PRN Reason: Mild Pain Or Fever > 100.5 Continue Folic Acid 2 mg PO DAILY Discontinued Ibuprofen [Advil] 200 - 400 mg PO Q6HR PRN PRN Reason: Pain Discharge Medication List Folic Acid 2 mg PO DAILY 04/28/22 [History] Acetaminophen Tab [Tylenol] 650 mg PO Q6HR PRN tab 05/02/22 [Rx] Famotidine [Pepcid] 20 mg PO DAILY #30 tab 05/02/22 [Rx] Levofloxacin [Levaquin] 750 mg PO DAILY 5 Days #5 tab 05/02/22 [Rx] predniSONE 10 mg PO DIRECTED #40 tab 05/02/22 [Rx] Follow up Appointment(s)/Referral(s): Tree Perez DO [Primary Care Provider] - 1-2 days Sally Iraheta MD [STAFF PHYSICIAN] - 1 Week Aime Sharma MD [STAFF PHYSICIAN] - 2 Weeks (Follow-up your blood test for fungal serology) Patient Instructions/Handouts: Bacterial Pneumonia (DC) Activity/Diet/Wound Care/Special Instructions: Heart healthy diet, low carbohydrate diet 12 steroids Activity is restricted till you see your doctor we recommend to keep holding your methotrexate upon discharge to see a signal system testing maintainer Dr. Iraheta Discharge Disposition: HOME SELF-CARE
== END 2022-05-02 13:00 | disposition home or self-care (01) | DRG 193 ==
LOC: EC 12:47 → 4SSUR 20:19 → OBSVTOIN 04-30 13:41
PROVIDERS: ADMIT Hospitalist; ATTEND Hospitalist
DX: J18.9 Pneumonia, unspecified organism (principal); J96.01 Acute respiratory failure with hypoxia; J81.1 Chronic pulmonary edema; E87.70 Fluid overload, unspecified; F41.9 Anxiety disorder, unspecified; E86.0 Dehydration; M06.9 Rheumatoid arthritis, unspecified; Z86.16 Personal history of COVID-19; Z20.822 Contact with and (suspected) exposure to COVID-19; Z86.010 Personal history of colon polyps; Z28.21 Immunization not carried out because of patient refusal; Z79.899 Other long term (current) drug therapy
CPT/HCPCS: 36415; 71045; 71046; 71260; 80048; 80053; 80076; 81003; 82553; 83735; 83880; 84145; 84443; 85025; 85652; 86140; 86738; 87040; 87449; 87502; 87634; 87635; 93306; 94640; 94760; 99285

== ENCOUNTER 2023-05-02 17:50 | Inpatient (IN) | payer MEDICARE ==
[2023-05-02] MEDS ORDERED: SODIUM CHLORIDE 0.9% 1,000 ML IV STA (18:45)
[2023-05-02] MEDS ORDERED: ONDANSETRON 4 MG/2 ML VIAL IVP STA (18:45)
[2023-05-02] MEDS ORDERED: PANTOPRAZOLE 40 MG/10 ML VIAL IVP STA (18:45)
[2023-05-02 19:28] LABS: Basophils % (A) 0 %; Eosinophils # (A) 0.1 k/uL (0-0.7); Eosinophils % (A) 1 %; HCT 38.9 % (34.0-46.0); Lymphocytes # (A) 2.3 k/uL (1.0-4.8); Lymphocytes % (A) 20 %; MCH 30.2 pg (25.0-35.0); MCHC 33.5 g/dL (31.0-37.0); MCV 90.3 fL (80.0-100.0); Mean Platelet Volume 8.7; Monocytes # (A) 0.7 k/uL (0-1.0); Monocytes % (A) 6 %; Neutrophils # (A) 8.2 k/uL (1.3-7.7); Neutrophils % (A) 71 %; Platelet Count 208 k/uL (150-450); RDW 13.8 % (11.5-15.5); WBC 11.7 k/uL (3.8-10.6)
--- NOTE | 2023-05-02 19:34 | ED ---
General Adult HPI - General Source: patient, RN notes reviewed, old records reviewed Mode of arrival: ambulatory Limitations: no limitations <Drew Gibbs - Last Filed: 05/02/23 21:12> <Poncho Chaudhary - Last Filed: 05/02/23 22:04> - General Chief complaint: Arrhythmia/Palpitations Stated complaint: Heart Palpitations,Abd Pain Time Seen by Provider: 05/02/23 18:08 - History of Present Illness Initial comments: Patient is a 67-year-old female who presents emergency Department complaining of lower abdominal pain as well as palpitations and upper respiratory symptoms. She is also noticed possible dark redness and some loose stools that has been ongoing for multiple weeks. All symptoms have been ongoing for multiple weeks. She has a history of RA on Humira and is concerned as she does have a history of significant pneumonia. Presents for evaluation for both the coughing as well as abdominal pain. Cough is also been ongoing for multiple weeks. No fevers. No known sick contacts. No nausea or vomiting. No urinary complaints. Presents for further evaluation of this time. Denies any vaginal complaints. Complaining of suprapubic abdominal achiness in addition to the upper respiratory symptoms of rhinorrhea, cough. No history of cardiac disease.She denies any chest pain. Symptoms have all been ongoing for multiple weeks. (Drew Gibbs) - Related Data Home Medications Medication Instructions Recorded Confirmed Folic Acid 2 mg PO DAILY 04/28/22 04/28/22 Previous Rx's Medication Instructions Recorded Acetaminophen Tab [Tylenol] 650 mg PO Q6HR PRN tab 05/02/22 Famotidine [Pepcid] 20 mg PO DAILY #30 tab 05/02/22 Levofloxacin [Levaquin] 750 mg PO DAILY 5 Days #5 tab 05/02/22 predniSONE 10 mg PO DIRECTED #40 tab 05/02/22 Allergies Allergy/AdvReac Type Severity Reaction Status Date / Time No Known Allergies Allergy Verified 04/28/22 18:07 Review of Systems ROS Other: All systems not noted in ROS Statement are negative. <Drew Gibbs - Last Filed: 05/02/23 21:12> ROS Other: All systems not noted in ROS Statement are negative. <Poncho Chaudhary - Last Filed: 05/02/23 22:04> ROS Statement: Those systems with pertinent positive or pertinent negative responses have been documented in the HPI. Review of Systems: CONST: Denies fever EYES: Denies blurry vision ENT: Endorses nasal congestion C/V: Endorses intermittent palpitations RESP: Endorses cough GI: Endorses abdominal pain : Denies dysuria SKIN: Denies rash. MSK: Denies joint pain. NEURO: Denies headache (Drew Gibbs) Past Medical History Past Medical History: No Reported History Additional Past Medical History / Comment(s): colon polyp, RA History of Any Multi-Drug Resistant Organisms: None Reported Past Surgical History: Appendectomy, Hysterectomy, Tonsillectomy, Tubal Ligation Additional Past Surgical History / Comment(s): colonoscopy 2 weeks ago Past Anesthesia/Blood Transfusion Reactions: No Reported Reaction Past Psychological History: No Psychological Hx Reported Smoking Status: Never smoker Past Alcohol Use History: None Reported Past Drug Use History: None Reported <Drew Gibbs - Last Filed: 05/02/23 21:12> General Exam Limitations: no limitations <Drew Gibbs - Last Filed: 05/02/23 21:12> - General Exam Comments Initial Comments: General: Appears in no acute distress. HEAD: Normal with no signs of head trauma. EYES: PERRLA, EOMI, conjunctiva normal, no discharge. ENT: Hearing grossly intact, normal oropharynx. RESPIRATORY: Clear breath sounds bilaterally. No wheezes, rales, or rhonchi. C/V: Regular rate and rhythm. S1 and S2 auscultated, no edema, peripheral pulses 2+ and intact throughout ABD: Abdomen soft, nondistended. Mild tenderness to palpation left lower quadrant suprapubic region. No guarding. No rebound tenderness. No peritoneal signs. EXT: Normal range of motion, no obvious deformity SKIN: No rashes or lesions observed on exposed skin. NEURO: Alert and oriented x 4. Cranial nerves II-XII intact. No focal sensory or strength deficits. (Drew Gibbs) Course Vital Signs 05/02/23 05/02/23 17:54 19:04 Temperature 98.6 F Pulse Rate 113 H 92 Respiratory 18 18 Rate Blood Pressure 131/85 128/83 O2 Sat by Pulse 96 97 Oximetry Medical Decision Making - Lab Data Result diagrams: 05/02/23 19:14 05/02/23 19:14 - EKG Data -: EKG Interpreted by Me <Drew Gibbs - Last Filed: 05/02/23 21:12> - Lab Data Result diagrams: 05/02/23 19:14 05/02/23 19:14 <Poncho Chaudhary - Last Filed: 05/02/23 22:04> - Medical Decision Making Was pt. sent in by a medical professional or institution ([facility] Muller, CNC MACHINIST, urgent care, hospital, or fpc...) When possible be specific @ -No Did you speak to anyone other than the patient for history (EMS, parent, family, police, friend...)? What history was obtained from this source @ -No Did you review nursing and triage notes (agree or disagree)? Why? @ -I reviewed and agree with nursing and triage notes Were old charts reviewed (outside hosp., previous admission, EMS record, old EKG, old radiological studies, urgent care reports/EKG's, fpc records)? Report findings @ -No old charts were reviewed Differential Diagnosis (chest pain, altered mental status, abdominal pain women, abdominal pain men, vaginal bleeding, weakness, fever, dyspnea, syncope, headache, dizziness, GI bleed, back pain, seizure, CVA, palpatations, mental health, musculoskeletal)? @ -Differential Abdominal Pain Women: Appendicitis, Cholecystitis, diverticulosis, ischemic bowel, pancreatitis, hepatitis, UTI, gastroenteritis, AAA, incarcerated hernia, bowel obstruction, constipation, inflammatory bowel, hepatitis, peptic ulcer disease, splenic infarction, perforated viscus, vulvitis, ovarian torsion, PID, kidney stone, placenta abruption, this is not meant to be an all-inclusive list. Also includes viral syndrome, pneumonia, COVID-19 infection. EKG interpreted by me (3pts min.). @ -As above X-rays interpreted by me (1pt min.). @ -Chest x-ray reveals no obvious infectious process at this time. CT interpreted by me (1pt min.). @ -pending U/S interpreted by me (1pt. min.). @ -None done What testing was considered but not performed or refused? (CT, X-rays, U/S, labs)? Why? @ -None What meds were considered but not given or refused? Why? @ -I offered analgesic medications which were declined. Did you discuss the management of the patient with other professionals (professionals i.e. [facility]ORD[facility] Muller, CNC MACHINIST, lab, RT, psych nurse, long term care social worker, associate professor of pathology, teacher, retail loan officer, caser)? Give summary @ -No Was smoking cessation discussed for >3mins.? @ -No Was critical care preformed (if so, how long)? @ -No Were there social determinants of health that impacted care today? How? (Homelessness, low income, unemployed, alcoholism, drug addiction, transportation, low edu. Level, literacy, decrease access to med. care, long-term, rehab)? @ -No Was there de-escalation of care discussed even if they declined (Discuss DNR or withdrawal of care, Hospice)? DNR status @ -No What co-morbidities impacted this encounter? (DM, HTN, Smoking, COPD, CAD, Cancer, CVA, ARF, Chemo, Hep., AIDS, mental health diagnosis, sleep apnea, morbid obesity)? @ -None Was patient admitted / discharged? Hospital course, mention meds given and route, prescriptions, significant lab abnormalities, going to OR and other p ertinent info. @ -Based on the patient's presentation and physical exam, I'm concerned for an acute intra-abdominal process or possible after respiratory illness for her current symptoms. We'll obtain screening EKG which showed PVCs. We also obtain abdominal laboratory studies as well as upper respiratory laboratory studies. She was in agreement this plan. Chest x-ray as well as viral swabs and CT and pelvis will be obtained. She will be symptomatically treated with 1 L fluid bolus, as well as IV Zofran and Protonix. She declines analgesic medications. Vital signs within acceptable limits. EKG shows no signs of acute ischemia.Patient's laboratory studies are within normal limits other than a mild leukocytosis of 11.7. Chest x-ray shows no evidence of acute infectious process or cardiopulmonary process. Vital signs negative. CT imaging still pending at this time. Care transitioned oncoming emergency Department physician Dr. Chaudhary pending results of CT imaging. Undiagnosed new problem with uncertain prognosis? @ -No Drug Therapy requiring intensive monitoring for toxicity (Heparin, Nitro, Insulin, Cardizem)? @ -No Were any procedures done? @ -No (Drew Gibbs) - Lab Data Lab Results 05/02/23 05/02/23 05/02/23 Range/Units 19:14 19:14 19:14 WBC 11.7 H (3.8-10.6) k/uL RBC 4.30 (3.80-5.40) m/uL Hgb 13.0 (11.4-16.0) gm/dL Hct 38.9 (34.0-46.0) % MCV 90.3 (80.0-100.0) fL MCH 30.2 (25.0-35.0) pg MCHC 33.5 (31.0-37.0) g/dL RDW 13.8 (11.5-15.5) % Plt Count 208 (150-450) k/uL MPV 8.7 Neutrophils % 71 % Lymphocytes % 20 % Monocytes % 6 % Eosinophils % 1 % Basophils % 0 % Neutrophils # 8.2 H (1.3-7.7) k/uL Lymphocytes # 2.3 (1.0-4.8) k/uL Monocytes # 0.7 (0-1.0) k/uL Eosinophils # 0.1 (0-0.7) k/uL Basophils # 0.0 (0-0.2) k/uL PT 9.7 (9.0-12.0) sec INR 0.9 (<1.2) APTT 23.0 (22.0-30.0) sec Sodium (137-145) mmol/L Potassium (3.5-5.1) mmol/L Chloride (98-107) mmol/L Carbon Dioxide (22-30) mmol/L Anion Gap mmol/L BUN (7-17) mg/dL Creatinine (0.52-1.04) mg/dL Est GFR (CKD-EPI)AfAm (>60 ml/min/1.73 sqM) Est GFR (CKD-EPI)NonAf (>60 ml/min/1.73 sqM) Glucose (74-99) mg/dL Plasma Lactic Acid Roland (0.7-2.0) mmol/L Calcium (8.4-10.2) mg/dL Total Bilirubin (0.2-1.3) mg/dL AST (14-36) U/L ALT (4-34) U/L Alkaline Phosphatase (38-126) U/L Total Protein (6.3-8.2) g/dL Albumin (3.5-5.0) g/dL Amylase (30-110) U/L Lipase (23-300) U/L Urine Color Yellow Urine Appearance Clear (Clear) Urine pH 6.0 (5.0-8.0) Ur Specific [place] 1.020 (1.001-1.035) Urine Protein Trace H (Negative) Urine Glucose (UA) Negative (Negative) Urine Ketones Negative (Negative) Urine Blood Negative (Negative) Urine Nitrite Negative (Negative) Urine Bilirubin Negative (Negative) Urine Urobilinogen <2.0 (<2.0) mg/dL Ur Leukocyte Esterase Small H (Negative) Urine RBC <1 (0-5) /hpf Urine WBC 4 (0-5) /hpf Ur Squamous Epith Cells 1 (0-4) /hpf Urine Bacteria Rare H (None) /hpf Urine Mucus Occasional H (None) /hpf Influenza Type A (PCR) (Not Detectd) Influenza Type B (PCR) (Not Detectd) RSV (PCR) (Not Detectd) SARS-CoV-2 (PCR) (Not Detectd) 05/02/23 05/02/23 05/02/23 Range/Units 19:14 19:14 19:14 WBC (3.8-10.6) k/uL RBC (3.80-5.40) m/uL Hgb (11.4-16.0) gm/dL Hct (34.0-46.0) % MCV (80.0-100.0) fL MCH (25.0-35.0) pg MCHC (31.0-37.0) g/dL RDW (11.5-15.5) % Plt Count (150-450) k/uL MPV Neutrophils % % Lymphocytes % % Monocytes % % Eosinophils % % Basophils % % Neutrophils # (1.3-7.7) k/uL Lymphocytes # (1.0-4.8) k/uL Monocytes # (0-1.0) k/uL Eosinophils # (0-0.7) k/uL Basophils # (0-0.2) k/uL PT (9.0-12.0) sec INR (<1.2) APTT (22.0-30.0) sec Sodium 133 L (137-145) mmol/L Potassium 4.1 (3.5-5.1) mmol/L Chloride 100 (98-107) mmol/L Carbon Dioxide 24 (22-30) mmol/L Anion Gap 9 mmol/L BUN 16 (7-17) mg/dL Creatinine 0.75 (0.52-1.04) mg/dL Est GFR (CKD-EPI)AfAm >90 (>60 ml/min/1.73 sqM) Est GFR (CKD-EPI)NonAf 83 (>60 ml/min/1.73 sqM) Glucose 103 H (74-99) mg/dL Plasma Lactic Acid Roland 0.9 (0.7-2.0) mmol/L Calcium 9.2 (8.4-10.2) mg/dL Total Bilirubin 1.0 (0.2-1.3) mg/dL AST 23 (14-36) U/L ALT 19 (4-34) U/L Alkaline Phosphatase 106 (38-126) U/L Total Protein 7.4 (6.3-8.2) g/dL Albumin 3.8 (3.5-5.0) g/dL Amylase 33 (30-110) U/L Lipase 29 (23-300) U/L Urine Color Urine Appearance (Clear) Urine pH (5.0-8.0) Ur Specific [place] (1.001-1.035) Urine Protein (Negative) Urine Glucose (UA) (Negative) Urine Ketones (Negative) Urine Blood (Negative) Urine Nitrite (Negative) Urine Bilirubin (Negative) Urine Urobilinogen (<2.0) mg/dL Ur Leukocyte Esterase (Negative) Urine RBC (0-5) /hpf Urine WBC (0-5) /hpf Ur Squamous Epith Cells (0-4) /hpf Urine Bacteria (None) /hpf Urine Mucus (None) /hpf Influenza Type A (PCR) Not Detected (Not Detectd) Influenza Type B (PCR) Not Detected (Not Detectd) RSV (PCR) Not Detected (Not Detectd) SARS-CoV-2 (PCR) Not Detected (Not Detectd) - EKG Data EKG Comments: 12-lead Electrocardiogram Interpretation Note EKG was reviewed and interpreted by myself. 12-lead ECG performed at 1803 is interpreted by me as revealing tachycardia with PVCs at a rate of 106 beats per minute. [place] is normal. [place] interval is 111 ms, QRS duration 75 ms, QTc is 362 ms.. There were no ST or T wave abnormalities to suggest myocardial ischemia or injury. R wave progression across the precordium was satisfactory. By my interpretation this EKG is non-diagnostic for acute ischemia. (Drew Gibbs) Disposition <Drew Gibbs - Last Filed: 05/02/23 21:12> Is patient prescribed a controlled substance at d/c from ED?: No <Poncho Chaudhary - Last Filed: 05/02/23 22:04> Clinical Impression: Diverticulitis Disposition: ADMITTED IP TO THIS HOSP Condition: Fair Referrals: Tree Perez DO [Primary Care Provider] - 1-2 days
[2023-05-02 19:43] LABS: INR 0.9 (<1.2); Prothrombin Time 9.7 sec (9.0-12.0)
--- NOTE | 2023-05-02 19:44 | XR ---
EXAMINATION TYPE: XR chest 2V DATE OF EXAM: 05/02/2023 7:29 PM COMPARISON: Chest radiographs from 05/01/2022 TECHNIQUE: XR chest 2V Frontal and lateral views of the chest. CLINICAL INDICATION:Female, 67 years old with history of abdominal pain; FINDINGS: Lungs/Pleura: There is no evidence of pleural effusion, focal consolidation, or pneumothorax. Pulmonary vascularity: Unremarkable. Heart/mediastinum: Cardiomediastinal silhouette is unremarkable. Musculoskeletal: No acute osseous pathology. Left upper quadrant probable splenic pseudocyst noted. IMPRESSION: No acute cardiopulmonary disease/process.
[2023-05-02 19:45] LABS: ALT 19 U/L (4-34); AST 23 U/L (14-36); African American GFR (CKD) >90 (>60 ml/min/1.73 sqM); Albumin 3.8 g/dL (3.5-5.0); Alkaline Phosphatase 106 U/L (38-126); Amylase 33 U/L (30-110); Anion Gap 9 mmol/L; Blood Urea Nitrogen 16 mg/dL (7-17); Calcium 9.2 mg/dL (8.4-10.2); Carbon Dioxide 24 mmol/L (22-30); Chloride 100 mmol/L (98-107); Glucose 103 mg/dL (74-99); Lipase 29 U/L (23-300); Non-African American GFR(CKD) 83 (>60 ml/min/1.73 sqM); Potassium 4.1 mmol/L (3.5-5.1); Sodium 133 mmol/L (137-145); Total Protein 7.4 g/dL (6.3-8.2)
[2023-05-02 20:02] LABS: Appearance,Urine Clear (Clear); Bacteria,Urine Rare /hpf; Bilirubin,Urine Negative (Negative); Blood,Urine Negative (Negative); Color,Urine Yellow; Glucose,Urine (UA) Negative (Negative); Ketones,Urine Negative (Negative); Leukocyte Esterase,Urine Small (Negative); Mucus,Urine Occasional /hpf; Nitrite,Urine Negative (Negative); Protein,Urine Trace (Negative); RBC,Urine <1 /hpf (0-5); Squamous Epithelial Cell,Urine 1 /hpf (0-4); Urobilinogen,Urine <2.0 mg/dL (<2.0); WBC,Urine 4 /hpf (0-5)
--- NOTE | 2023-05-02 21:16 | CT ---
EXAMINATION TYPE: CT abdomen pelvis w con CT DLP: 838.1 mGycm, Automated exposure control for dose reduction was used. DATE OF EXAM: 05/02/2023 9:07 PM COMPARISON: None CLINICAL INDICATION:Female, 67 years old with history of abdominal pain; lower abdominal pain, bloody stools, constipation TECHNIQUE: Axial CT of the abdomen and pelvis. Sagittal and coronal reformats were created on a [employer] workstation. Contrast used:100 mL of Isovue 370 with IV Contrast, (none if empty) Oral contrast used: without Oral Contrast (none if empty) FINDINGS: LOWER CHEST: Unremarkable ABDOMEN LIVER: Unremarkable GALLBLADDER AND BILE DUCTS: Unremarkable. PANCREAS: Unremarkable. SPLEEN: Unremarkable. ADRENAL GLANDS: Unremarkable. KIDNEYS AND URETERS: Mild hydronephrosis of the left renal collecting system. The right renal collect ing system is nondilated. No obstructive uropathy. PELVIS BLADDER: Unremarkable REPRODUCTIVE: The uterus is surgically absent. ABDOMEN & PELVIS STOMACH AND BOWEL: There is a second portion duodenal diverticulum. There is circumferential wall thi ckening of the sigmoid colon. Multiple colonic diverticula are present. Inflammation changes are seen in this region. Focal fluid collection measuring 11 x 18 mm present within the wall and/or immediate ly adjacent to the sigmoid colon. No evidence of bowel obstruction. PERITONEUM/RETROPERITONEUM: No evidence of pneumoperitoneum or free fluid. Suspected posttraumatic an d/or chronic process involving the spleen and a suspected granuloma in the left upper quadrant. VASCULATURE: No evidence of aortic aneurysm. MUSCULOSKELETAL: No acute osseous abnormalities. Mild disc degeneration changes are present throughou t the thoracolumbar spine. LYMPH NODES: No gross evidence for lymphadenopathy. SOFT TISSUE/ABDOMINAL WALL: Fat-containing umbilical hernia. IMPRESSION: 1. Acute colitis/diverticulitis of the sigmoid colon with pericolonic/intramural abscess measuring u p to 18 x 11 mm. No free air. 2. Mild left hydroureter likely secondary to #1.
[2023-05-02] MEDS ORDERED: metroNIDAZOLE-NS PMX 500 MG in SALINE 1 100ML.BAG IVPB STA (21:55)
[2023-05-02] MEDS ORDERED: LEVOFLOXACIN 750MG-D5W PMX 750 MG in DEXTROSE/WATER 1 150ML.BAG IVPB STA (21:55)
[2023-05-02] MEDS ORDERED: ACETAMINOPHEN TAB 325 MG TAB PO PRN (21:59)
[2023-05-02] MEDS ORDERED: ONDANSETRON 4 MG/2 ML VIAL IVP PRN (21:59)
[2023-05-02] MEDS ORDERED: NALOXONE 0.4 MG/ML 1 ML VIAL IV PRN (21:59)
[2023-05-02] MEDS ORDERED: MAG HYDROX/AL HYDROX/SIMETH 30 ML CUP PO PRN (21:59)
[2023-05-02] MEDS ORDERED: MORPHINE SULFATE 4 MG/ML SYRINGE IV PRN (21:59)
[2023-05-02] MEDS: SODIUM CHLORIDE 0.9% 1,000 ML IV SCH (23:25)
[2023-05-03] MEDS: PANTOPRAZOLE 40 MG/10 ML VIAL IV SCH (08:36)
[2023-05-03] MEDS: SODIUM CHLORIDE 0.9% 1,000 ML IV SCH ×3 (08:36→21:21)
--- NOTE | 2023-05-03 15:19 | P.CONS ---
History of Present Illness - Reason for Consult Consult date: 05/03/23 Medical management - History of Present Illness History of present illness; patient is a 67-year-old lady with past medical history significant for rheumatoid arthritis who presented to the ER because of abdominal pain. Patient stated that he has been having issues with abdominal pain for the last couple of months. She also started noticing that a few days ago she was having palpitations as well as shortness of breath. Patient is comparing of nausea and vomiting. Patient also had loss of appetite. Her abdominal pain was located in the lower quadrants, intermittent, no aggravating or relieving factors associated with abdominal pain. Patient also was noticing loose stools which were dark in color. Because his abdominal pain, patient came to the ER Initial lab work done in the ER showed WBC 11.7, hemoglobin 13, platelet count 208, sodium 1:30, potassium 4.1, BUN 16, creatinine 0.75, CT abdominal pelvis done showed acute colitis/diverticulitis of the sigmoid colon with pericolonic/intramural abscess measuring up to 18 x 11 mm. No free air Patient was admitted to general surgery, medicine team was consulted for medical management REVIEW OF SYSTEMS: CONSTITUTIONAL: As mentioned in HPI HEENT: No recent visual problems or hearing problems. Denied any sore throat. CARDIOVASCULAR: No chest pain, orthopnea, PND, no palpitations, no syncope. PULMONARY: As mentioned in HPI GASTROINTESTINAL:As mentioned in HPI NEUROLOGICAL: No headaches, no weakness, no numbness. HEMATOLOGICAL: Denies any bleeding or petechiae. GENITOURINARY: Denies any burning micturition, frequency, or urgency. MUSCULOSKELETAL/RHEUMATOLOGICAL: Denies any joint pain, swelling, or any muscle pain. ENDOCRINE: Denies any polyuria or polydipsia. The rest of the 14-point review of systems is negative. PHYSICAL EXAMINATION: GENERAL: The patient is alert and oriented x3, not in any acute distress. Well developed, well nourished. HEENT: Pupils are round and equally reacting to light. EOMI. No scleral icterus. No conjunctival pallor. Normocephalic, atraumatic. No pharyngeal erythema. No thyromegaly. CARDIOVASCULAR: S1 and S2 present. No murmurs, rubs, or gallops. PULMONARY: Chest is clear to auscultation, no wheezing or crackles. ABDOMEN: Soft, nontender, nondistended, normoactive bowel sounds. No palpable organomegaly. MUSCULOSKELETAL: No joint swelling or deformity. EXTREMITIES: No cyanosis, clubbing, or pedal edema. NEUROLOGICAL: Gross neurological examination did not reveal any focal deficits. SKIN: No rashes. Assessment and plan Acute diverticulitis of sigmoid colon with intramural abscess History of rheumatoid arthritis Monitor vital signs Monitor CBC Monitor CMP Continue telemetry monitoring Continue IV fluids Continue pain management Started patient on IV Zosyn Consult ID Follow-up on surgery recommendations Labs and medication were reviewed.. Continue same treatment. Continue with symptomatic treatment. Resume home medication. Monitor labs and vitals. DVT and GI prophylaxis. Further recommendations as per clinical course of the patient Dictation was produced using [employer] dictation software. please excuse any grammatical, word or spelling errors. Past Medical History Past Medical History: No Reported History Additional Past Medical History / Comment(s): colon polyp, RA History of Any Multi-Drug Resistant Organisms: None Reported Past Surgical History: Appendectomy, Hysterectomy, Tonsillectomy, Tubal Ligation Additional Past Surgical History / Comment(s): colonoscopy 2 weeks ago Past Anesthesia/Blood Transfusion Reactions: No Reported Reaction Past Psychological History: No Psychological Hx Reported Smoking Status: Never smoker Past Alcohol Use History: None Reported Past Drug Use History: None Reported Medications and Allergies Home Medications Medication Instructions Recorded Confirmed Type Adalimumab [Humira(Cf) Pen] 40 mg SQ Q14D 05/02/23 05/02/23 History Ibuprofen [Advil] 200 - 400 mg PO Q8HR PRN 05/02/23 05/02/23 History Allergies Allergy/AdvReac Type Severity Reaction Status Date / Time No Known Allergies Allergy Verified 05/02/23 22:26 Physical Exam Vitals: Vital Signs Temp Pulse Pulse Pulse Resp BP BP 05/03/23 07:43 98.1 F 86 18 121/85 05/03/23 00:15 98.5 F 81 16 05/02/23 23:00 98.6 F 86 20 129/82 05/02/23 22:00 87 18 127/80 05/02/23 21:00 85 18 120/83 05/02/23 19:04 92 18 128/83 05/02/23 17:54 98.6 F 113 H 18 131/85 BP Pulse Ox 05/03/23 07:43 94 L 05/03/23 00:15 126/83 97 05/02/23 23:00 96 05/02/23 22:00 98 05/02/23 21:00 96 05/02/23 19:04 97 05/02/23 17:54 96 Intake and Output 05/03/23 05/03/23 05/03/23 06:59 14:59 22:59 Other: # Voids 1 Weight 65.317 kg Results CBC & Chem 7: 05/02/23 19:14 05/02/23 19:14 Labs: Abnormal Lab Results - Last 24 Hours (Table) 05/02/23 05/02/23 05/02/23 Range/Units 19:14 19:14 19:14 WBC 11.7 H (3.8-10.6) k/uL Neutrophils # 8.2 H (1.3-7.7) k/uL Sodium 133 L (137-145) mmol/L Glucose 103 H (74-99) mg/dL Urine Protein Trace H (Negative) Ur Leukocyte Esterase Small H (Negative) Urine Bacteria Rare H (None) /hpf Urine Mucus Occasional H (None) /hpf
[2023-05-03] MEDS: PIPERACILLIN-TAZOBACTAM 3.375 GM in SODIUM CHLORIDE 0.9% 100 ML IVPB SCH ×2 (15:55→23:08)
--- NOTE | 2023-05-03 17:59 | P.GSHP ---
History of Present Illness H&P Date: 05/03/23 Chief Complaint: Left lower quadrant pain This a 67-year-old female with previous history of diverticulitis. Patient was presented to the emergency room with complaints of left lower quadrant pain. Her CAT scan suggests of diverticulitis with possible intramural abscess. Patient states she feels better this morning. Past Medical History Past Medical History: No Reported History Additional Past Medical History / Comment(s): colon polyp, RA History of Any Multi-Drug Resistant Organisms: None Reported Past Surgical History: Appendectomy, Hysterectomy, Tonsillectomy, Tubal Ligation Additional Past Surgical History / Comment(s): colonoscopy 2 weeks ago Past Anesthesia/Blood Transfusion Reactions: No Reported Reaction Past Psychological History: No Psychological Hx Reported Smoking Status: Never smoker Past Alcohol Use History: None Reported Past Drug Use History: None Reported Medications and Allergies Home Medications Medication Instructions Recorded Confirmed Type Adalimumab [Humira(Cf) Pen] 40 mg SQ Q14D 05/02/23 05/02/23 History Ibuprofen [Advil] 200 - 400 mg PO Q8HR PRN 05/02/23 05/02/23 History Allergies Allergy/AdvReac Type Severity Reaction Status Date / Time No Known Allergies Allergy Verified 05/02/23 22:26 Surgical - Exam Vital Signs Temp Pulse Resp BP Pulse Ox 98.6 F 113 H 18 131/85 96 05/02/23 17:54 05/02/23 17:54 05/02/23 17:54 05/02/23 17:54 05/02/23 17:54 - General well developed, well nourished, no distress - Eyes PERRL - ENT normal pinna - Neck no masses - Respiratory normal expansion - Cardiovascular Rhythm: regular - Abdomen Mild left lower quadrant tenderness Abdomen: soft Results - Labs 05/02/23 19:14 05/02/23 19:14 Abnormal Lab Results - Last 24 Hours (Table) 05/02/23 05/02/23 05/02/23 Range/Units 19:14 19:14 19:14 WBC 11.7 H (3.8-10.6) k/uL Neutrophils # 8.2 H (1.3-7.7) k/uL Sodium 133 L (137-145) mmol/L Glucose 103 H (74-99) mg/dL Urine Protein Trace H (Negative) Ur Leukocyte Esterase Small H (Negative) Urine Bacteria Rare H (None) /hpf Urine Mucus Occasional H (None) /hpf Diabetes panel 05/02/23 Range/Units 19:14 Sodium 133 L (137-145) mmol/L Potassium 4.1 (3.5-5.1) mmol/L Chloride 100 (98-107) mmol/L Carbon Dioxide 24 (22-30) mmol/L BUN 16 (7-17) mg/dL Creatinine 0.75 (0.52-1.04) mg/dL Glucose 103 H (74-99) mg/dL Calcium 9.2 (8.4-10.2) mg/dL AST 23 (14-36) U/L ALT 19 (4-34) U/L Alkaline Phosphatase 106 (38-126) U/L Total Protein 7.4 (6.3-8.2) g/dL Albumin 3.8 (3.5-5.0) g/dL Calcium panel 05/02/23 Range/Units 19:14 Calcium 9.2 (8.4-10.2) mg/dL Albumin 3.8 (3.5-5.0) g/dL Pituitary panel 05/02/23 Range/Units 19:14 Sodium 133 L (137-145) mmol/L Potassium 4.1 (3.5-5.1) mmol/L Chloride 100 (98-107) mmol/L Carbon Dioxide 24 (22-30) mmol/L BUN 16 (7-17) mg/dL Creatinine 0.75 (0.52-1.04) mg/dL Glucose 103 H (74-99) mg/dL Calcium 9.2 (8.4-10.2) mg/dL Adrenal panel 05/02/23 Range/Units 19:14 Sodium 133 L (137-145) mmol/L Potassium 4.1 (3.5-5.1) mmol/L Chloride 100 (98-107) mmol/L Carbon Dioxide 24 (22-30) mmol/L BUN 16 (7-17) mg/dL Creatinine 0.75 (0.52-1.04) mg/dL Glucose 103 H (74-99) mg/dL Calcium 9.2 (8.4-10.2) mg/dL Total Bilirubin 1.0 (0.2-1.3) mg/dL AST 23 (14-36) U/L ALT 19 (4-34) U/L Alkaline Phosphatase 106 (38-126) U/L Total Protein 7.4 (6.3-8.2) g/dL Albumin 3.8 (3.5-5.0) g/dL - Imaging CT scan - abdomen: report reviewed (Computed tomography scan has been reviewed. Evidence of diverticulitis with possible intramural abscess.) Assessment and Plan Plan: Diverticula is. Patient will be observed. She'll continue receive IV antibiotics.
--- NOTE | 2023-05-03 22:35 | P.CONS ---
History of Present Illness - Reason for Consult Consult date: 05/03/23 - History of Present Illness Patient is a 67-year-old female with a past medical history significant for rheumatoid arthritis history of colon polyp presenting to the hospital with abdominal pain that has been going on for almost a month pain has been mostly in the left lower abdominal area patient described the pain to be dull aching to sharp 7-8 out of 10 and no radiation patient did have worsening of the pain for the patient present to the hospital have some nausea but no vomiting and denies high-grade fever patient complaining of some dark stool but no yaneth blood with the symptoms the patient was evaluated on presentation to the hospital patient was afebrile and no fever has been recorded subsequently patient white count 9.7 with a left shift creatinine has been normal no signs of normal emboli sepsis with normal urine has been negative influenza RSV and COVID testing was negative chest x-ray did not show acute infiltrate patient did have a CT of abdominal pelvis diverticulitis sigmoid colon with pericolonic intramural abscess measuring 18 to 11 mm no free air mild left hydroureter patient was admitted to the hospital started on Zosyn did receive Levaquin and Flagyl in the ER infectious disease was consulted for further management of antibiotic therapy Past Medical History Past Medical History: No Reported History Additional Past Medical History / Comment(s): colon polyp, RA History of Any Multi-Drug Resistant Organisms: None Reported Past Surgical History: Appendectomy, Hysterectomy, Tonsillectomy, Tubal Ligation Additional Past Surgical History / Comment(s): colonoscopy 2 weeks ago Past Anesthesia/Blood Transfusion Reactions: No Reported Reaction Past Psychological History: No Psychological Hx Reported Smoking Status: Never smoker Past Alcohol Use History: None Reported Past Drug Use History: None Reported Medications and Allergies Home Medications Medication Instructions Recorded Confirmed Type Adalimumab [Humira(Cf) Pen] 40 mg SQ Q14D 05/02/23 05/02/23 History Ibuprofen [Advil] 200 - 400 mg PO Q8HR PRN 05/02/23 05/02/23 History Allergies Allergy/AdvReac Type Severity Reaction Status Date / Time No Known Allergies Allergy Verified 05/02/23 22:26 Physical Exam Vitals: Vital Signs Temp Pulse Pulse Pulse Resp BP BP 05/03/23 07:43 98.1 F 86 18 121/85 05/03/23 00:15 98.5 F 81 16 05/02/23 23:00 98.6 F 86 20 129/82 05/02/23 22:00 87 18 127/80 05/02/23 21:00 85 18 120/83 05/02/23 19:04 92 18 128/83 05/02/23 17:54 98.6 F 113 H 18 131/85 BP Pulse Ox 05/03/23 07:43 94 L 05/03/23 00:15 126/83 97 05/02/23 23:00 96 05/02/23 22:00 98 05/02/23 21:00 96 05/02/23 19:04 97 05/02/23 17:54 96 Intake and Output 05/02/23 05/03/23 05/03/23 22:59 06:59 14:59 Other: # Voids 1 Weight 65.317 kg 65.317 kg Results CBC & Chem 7: 05/02/23 19:14 05/02/23 19:14 Labs: Abnormal Lab Results - Last 24 Hours (Table) 05/02/23 05/02/23 05/02/23 Range/Units 19:14 19:14 19:14 WBC 11.7 H (3.8-10.6) k/uL Neutrophils # 8.2 H (1.3-7.7) k/uL Sodium 133 L (137-145) mmol/L Glucose 103 H (74-99) mg/dL Urine Protein Trace H (Negative) Ur Leukocyte Esterase Small H (Negative) Urine Bacteria Rare H (None) /hpf Urine Mucus Occasional H (None) /hpf Assessment and Plan Plan: 1patient presented hospital with left lower abdominal pain that has been going on for about a month in this patient with evidence of complicated diverticulitis with intramural abscess small no free air and no evidence of any perforation or pericolonic abscess will need to cover for the enteric gram-negative both aerobes and anaerobes in this patient who has not been on antibiotics in the recent past could be a sensitive pathogen 2-Zosyn 3.375 g should provide adequate antibiotic coverage along with bowel rest,, hopefully transition to oral biotics once cleared by surgery We will follow on clinical condition and cultures to further adjust medication if needed Thank you for this consultation we will follow the patient along with you Dictation was produced using [employer] dictation software. please excuse any grammatical, word or spelling errors. Time with Patient: Greater than 30
[2023-05-04] MEDS: SODIUM CHLORIDE 0.9% 1,000 ML IV SCH ×3 (02:57→21:24)
[2023-05-04] MEDS: PIPERACILLIN-TAZOBACTAM 3.375 GM in SODIUM CHLORIDE 0.9% 100 ML IVPB SCH ×3 (07:31→23:40)
[2023-05-04] MEDS: PANTOPRAZOLE 40 MG/10 ML VIAL IV SCH (07:31)
--- NOTE | 2023-05-04 12:46 | P.PN ---
Progress Note - Text Progress Note Date: 05/04/23 the patient feels better today. She has less left lower quadrant pain. She's had a bowel movement. On exam vital signs appear stable. Abdomen soft. There is minimal left lower quadrant pain. Resolving diverticulitis. Patient continue receive IV antibiotic. Despite discharged home tomorrow.
--- NOTE | 2023-05-04 12:59 | P.PN ---
Subjective Progress Note Date: 05/04/23 patient is a 67-year-old lady with past medical history significant for rheumatoid arthritis who presented to the ER because of abdominal pain. Patient stated that he has been having issues with abdominal pain for the last couple of months. She also started noticing that a few days ago she was having palpitations as well as shortness of breath. Patient is comparing of nausea and vomiting. Patient also had loss of appetite. Her abdominal pain was located in the lower quadrants, intermittent, no aggravating or relieving factors associated with abdominal pain. Patient also was noticing loose stools which were dark in color. Because his abdominal pain, patient came to the ER Initial lab work done in the ER showed WBC 11.7, hemoglobin 13, platelet count 208, sodium 1:30, potassium 4.1, BUN 16, creatinine 0.75, CT abdominal pelvis done showed acute colitis/diverticulitis of the sigmoid colon with pericolonic/intramural abscess measuring up to 18 x 11 mm. No free air Patient was admitted to general surgery, medicine team was consulted for medical management 05/04. Patient seen and examined. States abdominal pain has improved. Tolerating clear liquid diet. REVIEW OF SYSTEMS: CONSTITUTIONAL: No fever, no malaise,. CARDIOVASCULAR: No chest pain, no palpitations, no syncope. PULMONARY: No shortness of breath, no cough, GASTROINTESTINAL: No diarrhea, no nausea, no vomiting, no abdominal pain. NEUROLOGICAL: No headaches, no weakness, PHYSICAL EXAMINATION: GENERAL: The patient is alert and oriented x3, not in any acute distress. Well developed, well nourished. HEENT: Pupils are round and equally reacting to light. EOMI. No scleral icterus. No conjunctival pallor. Normocephalic, atraumatic. No pharyngeal erythema. No thyromegaly. CARDIOVASCULAR: S1 and S2 present. No murmurs, rubs, or gallops. PULMONARY: Chest is clear to auscultation, no wheezing or crackles. ABDOMEN: Soft, nontender, nondistended, normoactive bowel sounds. No palpable organomegaly. MUSCULOSKELETAL: No joint swelling or deformity. EXTREMITIES: No cyanosis, clubbing, or pedal edema. NEUROLOGICAL: Gross neurological examination did not reveal any focal deficits. SKIN: No rashes. Assessment and plan Acute diverticulitis of sigmoid colon with intramural abscess History of rheumatoid arthritis Monitor vital signs Monitor CBC Monitor CMP Continue pain management Continue antiemetics Continue IV Zosyn ID following Gen. surgery following Labs and medication were reviewed.. Continue same treatment. Continue with symptomatic treatment. Resume home medication. Monitor labs and vitals. DVT and GI prophylaxis. Further recommendations as per clinical course of the patient Dictation was produced using [employer] dictation software. please excuse any grammatical, word or spelling errors. Objective - Vital Signs Vital signs: Vital Signs Temp 97.7 F 05/04/23 07:15 Pulse 71 05/04/23 07:15 Resp 16 05/04/23 07:15 BP 124/80 05/04/23 07:15 Pulse Ox 96 05/04/23 07:15 FiO2 Intake & Output 05/03/23 05/04/23 05/04/23 18:59 06:59 18:59 Other: # Voids 3 2 - Labs CBC & Chem 7: 05/02/23 19:14 05/02/23 19:14
[2023-05-05] MEDS: SODIUM CHLORIDE 0.9% 1,000 ML IV SCH (04:10)
[2023-05-05 07:10] VITALS: BP 120/83; PULSE 85; RESP 17; TEMP 98
[2023-05-05] MEDS: PIPERACILLIN-TAZOBACTAM 3.375 GM in SODIUM CHLORIDE 0.9% 100 ML IVPB SCH (08:19)
[2023-05-05] MEDS: PANTOPRAZOLE 40 MG/10 ML VIAL IV SCH (08:20)
[2023-05-05 12:28] LABS: ALT 18 U/L (4-34); AST 26 U/L (14-36); African American GFR (CKD) >90 (>60 ml/min/1.73 sqM); Albumin 3.5 g/dL (3.5-5.0); Alkaline Phosphatase 93 U/L (38-126); Anion Gap 8 mmol/L; Blood Urea Nitrogen 9 mg/dL (7-17); Calcium 8.8 mg/dL (8.4-10.2); Carbon Dioxide 25 mmol/L (22-30); Chloride 103 mmol/L (98-107); Globulin 3.5 g/dL; Glucose 92 mg/dL (74-99); Non-African American GFR(CKD) 85 (>60 ml/min/1.73 sqM); Potassium 4.2 mmol/L (3.5-5.1); Sodium 136 mmol/L (137-145); Total Bilirubin 0.9 mg/dL (0.2-1.3)
[2023-05-05 12:39] LABS: Basophils % (A) 0 %; Eosinophils # (A) 0.2 k/uL (0-0.7); Eosinophils % (A) 2 %; HCT 35.7 % (34.0-46.0); HGB 11.8 gm/dL (11.4-16.0); Lymphocytes # (A) 1.8 k/uL (1.0-4.8); Lymphocytes % (A) 24 %; MCH 29.6 pg (25.0-35.0); MCHC 33.1 g/dL (31.0-37.0); MCV 89.5 fL (80.0-100.0); Mean Platelet Volume 8.5; Monocytes # (A) 0.6 k/uL (0-1.0); Monocytes % (A) 7 %; Neutrophils # (A) 4.8 k/uL (1.3-7.7); Neutrophils % (A) 64 %; Platelet Count 204 k/uL (150-450); RBC 3.99 m/uL (3.80-5.40); RDW 13.5 % (11.5-15.5); WBC 7.5 k/uL (3.8-10.6)
--- NOTE | 2023-05-05 14:28 | P.PN ---
Subjective Progress Note Date: 05/05/23 patient is a 67-year-old lady with past medical history significant for rheumatoid arthritis who presented to the ER because of abdominal pain. Patient stated that he has been having issues with abdominal pain for the last couple of months. She also started noticing that a few days ago she was having palpitations as well as shortness of breath. Patient is comparing of nausea and vomiting. Patient also had loss of appetite. Her abdominal pain was located in the lower quadrants, intermittent, no aggravating or relieving factors associated with abdominal pain. Patient also was noticing loose stools which were dark in color. Because his abdominal pain, patient came to the ER Initial lab work done in the ER showed WBC 11.7, hemoglobin 13, platelet count 208, sodium 1:30, potassium 4.1, BUN 16, creatinine 0.75, CT abdominal pelvis done showed acute colitis/diverticulitis of the sigmoid colon with pericolonic/intramural abscess measuring up to 18 x 11 mm. No free air Patient was admitted to general surgery, medicine team was consulted for medical management 05/04. Patient seen and examined. States abdominal pain has improved. Tolerating clear liquid diet. 05/05. Patient seen and examined. Tolerating diet. Had a bowel movement this morning REVIEW OF SYSTEMS: CONSTITUTIONAL: No fever, no malaise,. CARDIOVASCULAR: No chest pain, no palpitations, no syncope. PULMONARY: No shortness of breath, no cough, GASTROINTESTINAL: No diarrhea, no nausea, no vomiting, no abdominal pain. NEUROLOGICAL: No headaches, no weakness, PHYSICAL EXAMINATION: GENERAL: The patient is alert and oriented x3, not in any acute distress. Well developed, well nourished. HEENT: Pupils are round and equally reacting to light. EOMI. No scleral icterus. No conjunctival pallor. Normocephalic, atraumatic. No pharyngeal erythema. No thyromegaly. CARDIOVASCULAR: S1 and S2 present. No murmurs, rubs, or gallops. PULMONARY: Chest is clear to auscultation, no wheezing or crackles. ABDOMEN: Soft, nontender, nondistended, normoactive bowel sounds. No palpable organomegaly. MUSCULOSKELETAL: No joint swelling or deformity. EXTREMITIES: No cyanosis, clubbing, or pedal edema. NEUROLOGICAL: Gross neurological examination did not reveal any focal deficits. SKIN: No rashes. Assessment and plan Acute diverticulitis of sigmoid colon with intramural abscess History of rheumatoid arthritis Monitor vital signs Monitor CBC Monitor CMP Continue pain management Continue antiemetics Continue IV Zosyn ID following Gen. surgery following Labs and medication were reviewed.. Continue same treatment. Continue with symptomatic treatment. Resume home medication. Monitor labs and vitals. DVT and GI prophylaxis. Further recommendations as per clinical course of the patient Dictation was produced using [employer] dictation software. please excuse any grammatical, word or spelling errors. Objective - Vital Signs Vital signs: Vital Signs Temp 98.0 F 05/05/23 07:09 Pulse 85 05/05/23 07:09 Resp 17 05/05/23 07:09 BP 120/83 05/05/23 07:09 Pulse Ox 97 05/05/23 07:09 FiO2 Intake & Output 05/04/23 05/05/23 05/05/23 18:59 06:59 18:59 Other: # Voids 5 1 # Bowel Movements 1 - Labs CBC & Chem 7: 05/05/23 11:35 05/05/23 11:35
--- NOTE | 2023-05-06 09:10 | P.DS ---
Providers Date of admission: 05/02/23 22:03 Expected date of discharge: 05/05/23 Attending physician: Son Anderson Consults: 05/02/23 21:59 Consult Physician Routine Consulting Provider: Raghav Adorno Consult Reason/Comments: medical management Do you want consulting provider notified?: Yes 05/03/23 12:02 Consult Physician Routine Consulting Provider: Arelis Fernandes Consult Reason/Comments: colitis/abscess Do you want consulting provider notified?: Yes Primary care physician: Tree Perez [facility] Course: This is a 67-year-old female admitted to the hospital with diverticulitis. Patient responded to IV Hep-Lock therapy. On the day of discharge patient's vital signs are stable. Her abdomen was soft and nontender. Patient was discharged home. Avelox suction was made by Dr. Jack enwton. She'll follow-up in my office in one week. Patient Condition at Discharge: Fair Plan - Discharge Summary Discharge Rx Participant: Yes New Discharge Prescriptions: New Ibuprofen [Motrin] 600 mg PO Q6HR PRN #30 tab PRN Reason: Pain Control Acetaminophen Tab [Tylenol] 325 mg PO Q6H #0 tab Amoxic-Pot Clav 875-125Mg [Augmentin 875-125] 1 tab PO Q12HR 10 Days #20 tab No Action Adalimumab [Humira(Cf) Pen] 40 mg SQ Q14D Ibuprofen [Advil] 200 - 400 mg PO Q8HR PRN PRN Reason: Pain Discharge Medication List Adalimumab [Humira(Cf) Pen] 40 mg SQ Q14D 05/02/23 [History] Ibuprofen [Advil] 200 - 400 mg PO Q8HR PRN 05/02/23 [History] Acetaminophen Tab [Tylenol] 325 mg PO Q6H #0 tab 05/05/23 [Rx] Amoxic-Pot Clav 875-125Mg [Augmentin 875-125] 1 tab PO Q12HR 10 Days #20 tab 05/05/23 [Rx] Ibuprofen [Motrin] 600 mg PO Q6HR PRN #30 tab 05/05/23 [Rx] Follow up Appointment(s)/Referral(s): Flaquito Douglas MD [Medical Doctor] - 05/19/23 8:50 am Tree Perez DO [Primary Care Provider] - 05/24/23 2:30 pm Patient Instructions/Handouts: Diverticulitis (DC) Discharge Disposition: HOME SELF-CARE
== END 2023-05-05 16:01 | disposition home or self-care (01) | DRG 392 ==
LOC: EC 17:50 → 4SSUR 22:03
PROVIDERS: ADMIT Surgery; ATTEND Surgery
DX: K57.20 Diverticulitis of large intestine with perforation and abscess without bleeding (principal); N13.4 Hydroureter; M06.9 Rheumatoid arthritis, unspecified; I49.3 Ventricular premature depolarization; Z20.822 Contact with and (suspected) exposure to COVID-19; Z87.01 Personal history of pneumonia (recurrent); Z79.899 Other long term (current) drug therapy; Z79.620 Long term (current) use of immunosuppressive biologic
CPT/HCPCS: 36415; 71046; 74177; 80053; 81001; 82150; 83605; 83690; 85025; 85610; 85730; 87636; 93005; 96361; 96365; 96375; 99285

== ENCOUNTER 2023-12-09 08:20 | Day surgery (SDC) | payer MEDICARE ==
[2023-12-07 10:21] VITALS: BMI 25.7
[~2023-12-09 08:20] MED LIST: LIDOCAINE 1% (10MG/ML) FOR IV START INTRADERMA PRN
[2023-12-09] MEDS: LACTATED RINGERS 1,000 ML IV SCH (08:40)
[2023-12-09 08:56] VITALS: TEMP 98.4
[2023-12-09] MEDS ORDERED: PROPOFOL 10 MG/ML 20 ML VIAL IV ONE (09:26)
--- NOTE | 2023-12-09 09:47 | P.PCN ---
Date of Procedure: 12/09/23 Procedure(s) Performed: BRIEF HISTORY: Patient is a 68-year-old pleasant female scheduled for an elective colonoscopy as a part of evaluation of prior history of colon polyps. She also has recent episode of acute sigmoid diverticulitis treated with antibiotics 6 months ago. PROCEDURE PERFORMED: Colonoscopy. PREOPERATIVE DIAGNOSIS: History of colon polyps and recent episode of acute sigmoid diverticulitis. IV sedation per Anesthesia. PROCEDURE: After informed consent was obtained, the patient, was brought into the endoscopy unit. IV sedation was administered by Anesthesia under continuous monitoring. Digital rectal examination was normal. Initially the Olympus CF-160 flexible video colonoscope was then inserted in the rectum, gradually advanced into the cecum without any difficulty. Careful examination was performed as the scope was gradually being withdrawn. Ileocecal valve and the appendiceal orifice were visualized and appeared normal. Prep was excellent. Mucosa of the cecum, ascending colon, transverse colon, descending colon, sigmoid colon, and rectum appeared normal. Scattered sigmoid diverticulosis Retroflexion was performed in the rectum and no lesions were seen. The patient tolerated the procedure well. IMPRESSION: Normal-appearing colon from rectum to cecum with no evidence of colorectal neoplasia. Scattered sigmoid diverticulosis. RECOMMENDATIONS: Findings of this examination were discussed with the patient as well as a family. She was advised to be a high-fiber diet and take fiber supplements a regular basis. Recommend repeat colonoscopy in 10 years..
[2023-12-09 10:43] VITALS: BP 137/81; PULSE 72; RESP 18
== END 2023-12-09 10:33 | disposition home or self-care (01) ==
LOC: ORWHC2ENDO 08:20
PROVIDERS: ATTEND Internal Medicine Gastroenterology
DX: K57.30 Diverticulosis of large intestine without perforation or abscess without bleeding (principal); M06.9 Rheumatoid arthritis, unspecified; Z79.899 Other long term (current) drug therapy; Z98.51 Tubal ligation status
CPT/HCPCS: 45378; J2704

== ENCOUNTER → 2023-12-19 | Outpatient (CLI) | payer MEDICARE ==
--- NOTE | 2023-12-20 14:16 | MM ---
Reason for Exam: Screening (asymptomatic). Last mammogram was performed 4 year(s) and 7 month(s) ago. Patient History: Menarche at age 11. First Full-Term at age 23. Postmenopausal. Estrogen, starting at age 46 for 5 years. 09/20/2007, Benign Core Biopsy on the right side. 09/20/2007, Benign Core Biopsy on the right side. Risk Values: Anayeli 5 year model risk: 2.5%. NCI Lifetime model risk: 8.1%. Prior Study Comparison: 08/31/2007 Right Diagnostic Mammogram, [facility]. 01/05/2011 Bilateral Diagnostic Mammogram, [facility]. 05/30/2019 Bilateral Screening Mammogram, [facility]. Tissue Density: There are scattered areas of fibroglandular density. Findings: Analyzed By CAD. Right breast: There is no suspicious group of microcalcifications or new suspicious mass. Benign-appearing calcifications right breast. Left breast: There is no suspicious group of microcalcifications or new suspicious mass. Benign-appearing calcifications left breast. Overall Assessment: Benign, BI-RAD 2 Management: Screening Mammogram of both breasts in [address] [facility] will attempt to contact patient to return for supplemental views and ultrasound if indicated. Patient should continue monthly self-breast exams. A clinical breast exam by your physician is recommended on an annual basis. This exam should not preclude additional follow-up of suspicious palpable abnormalities. Note on Anayeli scores and lifetime risk: 1. A Anayeli score greater than 3% is considered moderate risk. If this is the case, consider specialist referral to assess eligibility for a risk reducing agent. 2. If overall lifetime risk for the development of breast cancer is 20% or higher, the patient may qualify for future screening with alternating mammogram and breast MRI. Electronically signed and approved by: Roddy Arthur DO
== END | disposition home or self-care (01) ==
LOC: RADMAMWWP 14:35
PROVIDERS: ATTEND Family Medicine
DX: Z12.31 Encounter for screening mammogram for malignant neoplasm of breast (principal); Z78.0 Asymptomatic menopausal state
CPT/HCPCS: 77063; 77067

== ENCOUNTER → 2025-01-25 | Outpatient (CLI) | payer MEDICARE ==
--- NOTE | 2025-01-25 10:04 | MM ---
Reason for Exam: Screening (asymptomatic). Last mammogram was performed 1 year(s) and 1 month(s) ago. Patient History: Menarche at age 11. First Full-Term at age 23. Postmenopausal. Patient has history of breast feeding. Estrogen, starting at age 46 for 5 years. 09/20/2007, Benign Core Biopsy on the right side. 09/20/2007, Benign Core Biopsy on the right side. Risk Values: Anayeli 5 year model risk: 2.5%. NCI Lifetime model risk: 7.7%. Prior Study Comparison: 01/05/2011 Bilateral Diagnostic Mammogram, [facility]. 05/30/2019 Bilateral Screening Mammogram, [facility]. 12/19/2023 Bilateral MG 3D screening mammo w/cad, [facility]. Tissue Density: The breasts are heterogeneously dense, which may obscure small masses. Findings: Analyzed By CAD. Right breast biopsy clip. Right breast: There is no suspicious group of microcalcifications or new suspicious mass. Benign-appearing calcifications right breast. Left breast: There is no suspicious group of microcalcifications or new suspicious mass. Benign-appearing calcifications left breast. Overall Assessment: Benign, BI-RAD 2 Management: Screening Mammogram of both breasts in [address] [facility] will attempt to contact patient to return for supplemental views and ultrasound if indicated. Patient should continue monthly self-breast exams. A clinical breast exam by your physician is recommended on an annual basis. This exam should not preclude additional follow-up of suspicious palpable abnormalities. Note on Anayeli scores and lifetime risk: 1. A Anayeli score greater than 3% is considered moderate risk. If this is the case, consider specialist referral to assess eligibility for a risk reducing agent. 2. If overall lifetime risk for the development of breast cancer is 20% or higher, the patient may qualify for future screening with alternating mammogram and breast MRI. [facility], , 01/25/2025 10:01 AM. Electronically signed and approved by: Roddy Arthur DO
== END | disposition home or self-care (01) ==
LOC: RADMAMWWP 09:33
PROVIDERS: ATTEND Family Medicine
DX: Z12.31 Encounter for screening mammogram for malignant neoplasm of breast (principal); R92.333 Mammographic heterogeneous density, bilateral breasts; Z78.0 Asymptomatic menopausal state
CPT/HCPCS: 77063; 77067